=== PATIENT | female | born 1980 | race Caucasian/White ===

== ENCOUNTER 2018-02-22 07:50 | Day surgery (SDC) | payer BC ==
--- NOTE | 2018-02-14 15:03 | HP ---
AMENDED REPORT NOW INCLUDES DESIGNATED COSIGNER CC: Jesusita Zayas MD * PREOPERATIVE HISTORY AND PHYSICAL: DATE OF ADMISSION/SURGERY: 02/22/18 This patient is scheduled for same-day surgery admission by Dr. Maier on , 02/22/18 DATE OF PREOPERATIVE HISTORY AND PHYSICAL EXAMINATION: 02/14/18. ATTENDING SURGEON: Adryan Maier MD * (dictated by Jesusita Razo NP) CHIEF COMPLAINT: Reflux. HISTORY OF PRESENT ILLNESS: The patient is a 37-year-old female recently evaluated by Dr. Maier for longstanding issues with heartburn. She has been followed in the past by Dr. Barnard. He has tried various heartburn medications without relief. She reports currently she is having difficulty sleeping at night; currently, she is taking Prilosec 40 mg daily and then doubles up on Tums to try to control it and is still very uncomfortable. She describes the heartburn pain going up to center of her chest to the back of her throat. Upper GI series revealed a moderate hiatal hernia and upper endoscopy revealed Luis ulcers and a hiatal hernia. Dr. Maier has discussed the findings with her and has recommended a laparoscopic Eufemia fundoplication as a same day surgery procedure. He discussed the nature of the surgical procedure, the general anesthesia, the expected results of the surgery, the relevant risks and benefits and today I reviewed the typical progression of the postoperative diet and expected postoperative care and recovery. The patient has had a chance to ask questions and stated that she understands the information and is satisfied with the answers given to her questions. She will sign surgical consent on the day of surgery. PAST MEDICAL HISTORY: Morbid obesity, gastroesophageal reflux disease, migraine headaches, obstructive sleep apnea, fatigue. PAST SURGICAL HISTORY: Laparoscopic appendectomy in 2014; D and C. OB HISTORY: 6, para 4, miscarriage 2. Last menstrual period started February 01, 2018. She is up-to-date with mammogram and pelvic exam within the past year. MEDICATIONS: 1. Bupropion HCL extended release 300 mg p.o. daily in the morning. 2. Levocetirizine 5 mg p.o. daily. 3. Prilosec 20 mg b.i.d. 4. Multivitamin 1 tablet daily. 5. Vitamin B12 when she remembers to take it. ALLERGIES: CLINDAMYCIN causes rash. PENICILLIN, she was advised to avoid PENICILLIN by her scale tank operator. LATEX causes skin peeling and KIWI causes mouth swelling. REVIEW OF SYSTEMS: Constitutional: No fevers, chills, excessive fatigue or weight loss. Endocrine: No diabetes or thyroid disease. Hematologic: No easy bruising or bleeding. Respiratory: No dyspnea on exertion. No chronic cough. Cardiovascular: No anginal chest pain or palpitations. Gastrointestinal : No nausea, vomiting, diarrhea, GI bleeding or constipation; see history of present illness for current gastrointestinal complaints. Genitourinary: No dysuria. Musculoskeletal: Back pain, which she relates to the heaviness of her breasts and is considering breast reduction surgery. Integumentary: No chronic rashes or skin changes. Neurologic: No current headache or blurred vision. She does have a history of migraine headaches. General: No previous anesthesia complications. No history of deep vein thrombosis or pulmonary embolism. No history of blood transfusions. SOCIAL HISTORY: She is and is a registered nurse, employed at [employer]. She is a nonsmoker. She denies the uses of alcohol or other substances. FAMILY HISTORY: No known anesthesia complications, bleeding tendencies or clotting disorders; many relatives are diabetics. PHYSICAL EXAMINATION GENERAL SURVEY: The patient is a 37-year-old obese female, well developed, in no acute distress. VITAL SIGNS: Height 61 inches, weight 200 pounds, body mass index 37.8. Blood pressure 140/92, pulse 72 and regular, respiratory rate 16, temperature 97.8 tympanic. HEENT: Benign. NECK: Supple. No cervical lymphadenopathy. LUNGS: Breath sounds bilaterally clear and equal. HEART: Regular rate and rhythm. No murmurs or rubs appreciated. ABDOMEN: Active bowel sounds, obese, soft, nondistended. Mildly tender in the epigastric region. No guarding. No obvious masses or organomegaly. No obvious ventral hernias. Well healed trocar scars. PELVIC: Exam done within the past year, not repeated. RECTAL: Exam done within the past year, not repeated. BACK: No CVA tenderness. EXTREMITIES: Warm without edema or skin ulceration. NEUROLOGIC: Alert and oriented x3. Steady gait. SKIN: Warm, dry, intact. IMPRESSION: Gastroesophageal reflux disease, hiatal hernia. PLAN: Same-day surgery admission to Dr. Maier's service for laparoscopic Eufemia fundoplication on , 02/22/18. YOON RAZO, PROJECT LEAD [id number]/[facility] #: [id number] [facility]awny
[~2018-02-22 07:50] MED LIST: Buffered Lidocaine 0.9% SYRIN* 5 ML/SYR SYRINGE INTRADERM ONE; Dexamethasone IV* 4 MG/ML 1 ML (4 MG) IV SLOW PU ONE; Famotidine IV* 10 MG/ML 2 ML (20 mg) IV ONE
[2018-02-22] MEDS ORDERED: Morphine VIAL* 4 MG/ML VIAL (1 ml vial) IV ONE (07:53)
[2018-02-22] MEDS ORDERED: Dexamethasone IV* 4 MG/ML 1 ML (4 MG) ONE ×2 (07:59→10:22)
[2018-02-22] MEDS ORDERED: Levofloxacin 750 MG IVPREMIX(* 750 MG/150 ML BAG ONE (07:59)
[2018-02-22] MEDS ORDERED: Famotidine IV* 10 MG/ML 2 ML (20 mg) ONE (07:59)
[2018-02-22] MEDS ORDERED: fentaNYL* 50 MCG/ML 5 ML VIAL (250 MCG VIAL) ONE (08:32)
[2018-02-22] MEDS ORDERED: Midazolam* 1 MG/ML 5 ML VIAL (5 MG) ONE (08:32)
[2018-02-22] MEDS ORDERED: Rocuronium* 10 MG/ML VIAL ONE (08:32)
[2018-02-22] MEDS ORDERED: Succinylcholine* 20 MG/ML 10 ML VIAL ONE (08:32)
[2018-02-22] MEDS ORDERED: Lidocaine 2% PF * 5 ML VIAL ONE (08:32)
[2018-02-22] MEDS ORDERED: Ondansetron INJ* 2 MG/ML VIAL ONE (08:43)
[2018-02-22] MEDS ORDERED: Bupivacaine 0.25% W/EPI* 10 ML SDV ONE (09:16)
[2018-02-22] MEDS ORDERED: Phenylephrine INJ* 10 MG/ML 1 ML VIAL (10 MG) ONE (09:47)
[2018-02-22] MEDS ORDERED: Propofol* 10 MG/ML 20 ML BTL IV PUSH ONE (10:24)
[2018-02-22] MEDS ORDERED: Morphine VIAL* 4 MG/ML VIAL (1 ml vial) IV PRN (10:28)
[2018-02-22] MEDS ORDERED: Ketorolac INJ* 30 MG/ML 1 ML VIAL IV PRN (10:28)
[2018-02-22] MEDS ORDERED: PROCHLORPERAZINE INJ 5 MG/ML 2 ML VIAL IV PRN (10:28)
[2018-02-22] MEDS ORDERED: Acetaminophen IV 1GM/100ML * 1,000 MG/100 ML VIAL IVPB ONE (10:28)
[2018-02-22] MEDS ORDERED: DiMENhydriNATE IV* 50 MG/ML VIAL IV PUSH PRN (10:28)
[2018-02-22] MEDS ORDERED: Naloxone* 0.4 MG/ML 1 ML VIAL IV PRN (10:28)
[2018-02-22] MEDS ORDERED: Sugammadex * 200 MG/2 ML VIAL IV PUSH ONE (11:06)
[2018-02-22] MEDS ORDERED: VASOPRESSIN 20 UNITS/ML 1 ML VIAL ONE (11:08)
[2018-02-22] MEDS ORDERED: EPHEDrine (Pressors)* 50 MG/ML VIAL ONE (11:09)
[2018-02-22] MEDS ORDERED: Acetaminophen IV 1GM/100ML * 100 ML ONE (11:31)
[2018-02-22] MEDS ORDERED: Ketorolac INJ* 30 MG/ML 1 ML VIAL ONE (11:31)
[2018-02-22] MEDS ORDERED: fentaNYL* 50 MCG/ML 2 ML VIAL (100 MCG VIAL) ONE (11:31)
[2018-02-22] MEDS: fentaNYL* 50 MCG/ML 2 ML VIAL (100 MCG VIAL) IV PRN ×3 (11:55→13:53)
[2018-02-22 14:14] VITALS: BP 155/90
--- NOTE | 2018-02-23 09:43 | OP ---
CC: Dr. Zayas, Dr. Barnard * DATE OF OPERATION: 02/22/18 - [facility] DATE OF : 78 SURGEON: Dr. Maier OPERATING ROOM COORDINATOR: DIANA Harper ANESTHESIOLOGIST: Dr. Villafana. ANESTHESIA: General anesthetic, local infiltration. PRE-OP DIAGNOSIS: Gastroesophageal reflux disease. POST-OP DIAGNOSIS: Gastroesophageal reflux disease. OPERATIVE PROCEDURE: Laparoscopic Eufemia fundoplication. DESCRIPTION OF PROCEDURE: The patient was supine on the operating table after adequate general anesthetic, compression stockings, Laquita Hugger warmer, and intravenous antibiotics. The abdomen was prepped with antiseptic and draped in a sterile fashion. She was on the split leg table and appropriately padded and positioned and secured to the table. The local anesthetic was administered as a 5 mm right upper quadrant Visiport cannula was placed. Insufflation was carried out with carbon dioxide and additional cannula of 5 mm supraumbilical and subxiphoid and left anterior axillary line as well as 12 mm left mid costal. The liver was tented up and retracted in the usual fashion. The gastrohepatic omentum was entered over the caudate lobe and section carried up to the crura and the mediastinum was entered in this location and then the esophagus was dissected free. Retroesophageal window was created and a Hleadio was used for retraction. The GE junction was brought well down into the abdominal cavity. The crura was closed retroesophageally using 0 Ethibond. This was done around a 54-Gabonese bougie and was not too tight. The wrap was created in the usual fashion. The attachments over towards the spleen were taken down with a LigaSure and then the wrap was nice and floppy. 2 sutures were utilized and the wrap was also tacked to the esophageal wall anteriorly to prevent slippage. Everything was in good condition. There was good hemostasis. The cannulae were removed. Pneumoperitoneum allowed to escape and skin was closed with 5-0 Vicryl followed by Steri-Strips. She tolerated the procedure well, was awakened, extubated, and brought to recovery in good condition. There were no complications. No drains. No pathologic specimen. Sponge and instrument counts correct. Estimated blood loss is less than 30 mL. [id number]/[facility] #: [id number] [facility]
== END 2018-02-22 14:55 | disposition home or self-care (01) ==
LOC: OR 07:50
PROVIDERS: ATTEND Surgery
DX: K21.9 Gastro-esophageal reflux disease without esophagitis (principal); K44.9 Diaphragmatic hernia without obstruction or gangrene; E66.01 Morbid (severe) obesity due to excess calories; Z68.37 Body mass index [BMI] 37.0-37.9, adult; G47.33 Obstructive sleep apnea (adult) (pediatric)
CPT/HCPCS: 81025; J0330; J1100; J1885; J2250; J2270; J2405; J2704; J3010

== ENCOUNTER 2018-04-14 23:29 | Emergency (ER) | payer BC ==
[2018-04-15 00:08] LABS: ABS Basophils 0.1 10^3/ul (0-0.2); ABS Lymphocytes 2.4 10^3/ul (1.0-4.8); ABS Monocytes 0.5 10^3/ul (0-0.8); ABS Neutrophils 4.2 10^3/ul (1.5-7.7); ABS Nucleated RBC 0 10^3/ul; Eosinophil % 12.4 %; Hematocrit 38 % (35-47); Hemoglobin 12.9 g/dl (12.0-16.0); Lymphocyte % 29.1 %; Mean Corpuscular HGB Conc 34 g/dl (31-36); Mean Corpuscular Hemoglobin 30 pg (27-31); Mean Corpuscular Volume 89 fL (80-97); Nucleated Red Blood Cells % 0; Platelet Count 337 10^3/ul (150-450); Red Blood Count 4.26 10^6/ul (4.00-5.40); Red Cell Distribution Width 14 % (10.5-15); White Blood Count 8.1 10^3/ul (3.5-10.8)
--- NOTE | 2018-04-15 00:18 | ED ---
- HPI Summary HPI Summary: 37 year old female LMP nov presents with vaginal bleeding and LLQ pain today. has not had an ultrasound yet but had confirmed at primary. states has been minimal bleeding. She denies any disease. has follow up with ob in a couple weeks as has history of miscarriages with last one requiring surgery has had a missed in dec. she denies any nausea or vomiting. No urinary symptoms. No fevers. no abnormal vaginal discharge. blood type O positive - History of Current Complaint Chief Complaint: EDOBProblems Stated Complaint: 3 MONTHS PREG/CRAMPING AND BLEEDING Time Seen by Provider: 04/14/18 23:51 Pain Intensity: 4 - Assessment Hx Now: Yes - 4 weeks Hx Hysterectomy: No - Allergies/Home Medications Allergies/Adverse Reactions: Allergies Allergy/AdvReac Type Severity Reaction Status Date / Time clindamycin Allergy Severe Rash Verified 04/14/18 23:40 latex Allergy Severe Rash Verified 04/14/18 23:40 doxycycline Allergy Mild Rash Verified 04/14/18 23:40 Penicillins Allergy Unknown Verified 04/14/18 23:40 Reaction Details KIWI Allergy Intermediate SOB, RASH Uncoded 04/14/18 23:40 PMH/Surg Hx/FS Hx/Imm Hx Endocrine/Hematology History: Denies: Hx Diabetes Cardiovascular History: Denies: Hx Congestive Heart Failure, Hx Hypertension, Other Cardiovascular Problems/Disorders Respiratory History: Reports: Hx Asthma - no meds currrently, but has Qvar, Hx Sleep Apnea Denies: Other Respiratory Problems/Disorders GI History: Reports: Hx Gastroesophageal Reflux Disease - On medication, Hx Hiatal Hernia Denies: Other GI Disorders History: Reports: Hx Kidney Infection - Hx OF, MANY YEARS AGO Denies: Hx Renal Disease, Other Problems/Disorders Musculoskeletal History: Reports: Other Musculoskeletal History - has chronic back pain, states due to breasts being large Sensory History: Reports: Hx Contacts or Glasses - GLASSES or contacts- instructed to wear glasses day of surgery Denies: Hx Hearing Aid Opthamlomology History: Reports: Hx Contacts or Glasses - GLASSES or contacts- instructed to wear glasses day of surgery Neurological History: Reports: Hx Headaches, Hx Migraine - not recent Denies: Other Neuro Impairments/Disorders Psychiatric History: Reports: Hx Anxiety, Hx Depression - on bupropion - Surgical History Surgery Procedure, Year, and Place: D&C 2006, 2014. 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 , Hx Shingles Denies: Hx Clostridium Difficile, Hx Hepatitis, Hx Human Immunodeficiency Virus (HIV), Hx Tuberculosis, Hx Known/Suspected VRE, Hx Known/Suspected VRSA, History Other Infectious Disease, Traveled Outside the [place] in Last 30 Days - Family History Known Family History: Positive: None, Diabetes - Social History Alcohol Use: None Hx Substance Use: No Substance Use Type: Reports: None Hx Tobacco Use: No Smoking Status (MU): Never Smoked Tobacco Have You Smoked in the Last Year: No Review of Systems Negative: Fever Negative: Chest Pain Negative: Shortness Of Breath Positive: Abdominal Pain, Other - vaginal bleeding All Other Systems Reviewed And Are Negative: Yes Physical Exam - Physical Exam Triage Information Reviewed: Yes Vital Signs Reviewed: Yes Appearance: Positive: Well-Appearing Skin: Positive: Warm, Dry Head/Face: Positive: Normal Head/Face Inspection Eyes: Positive: Normal, Conjunctiva Clear ENT: Positive: Pharynx normal Respiratory/Lung Sounds: Positive: Clear to Auscultation, Breath Sounds Present Cardiovascular: Positive: Normal, RRR Abdomen Description: Positive: Soft, Other: - tenderness LLQ Bowel Sounds: Positive: Present Pelvic Exam: External Exam Normal, Speculum Exam Normal, Bimanual Exam Normal, Tender Adnexa - left, Tender Uterus Musculoskeletal: Positive: Normal Neurological: Positive: Normal Psychiatric: Positive: Normal Diagnostics - Vital Signs Vital Signs Temp Pulse Resp BP Pulse Ox 04/15/18 00:00 94 99 04/14/18 23:51 94 98 04/14/18 23:50 95 150/87 98 04/14/18 23:36 98.6 F 90 16 157/97 98 - Laboratory Lab Results: Lab Results 04/14/18 Range/Units 23:55 WBC 8.1 (3.5-10.8) 10^3/ul RBC 4.26 (4.00-5.40) 10^6/ul Hgb 12.9 (12.0-16.0) g/dl Hct 38 (35-47) % MCV 89 (80-97) fL MCH 30 (27-31) pg MCHC 34 (31-36) g/dl RDW 14 (10.5-15) % Plt Count 337 (150-450) 10^3/ul MPV 8.0 (7.4-10.4) fL Neut % (Auto) 51.4 % Lymph % (Auto) 29.1 % [place] % (Auto) 6.0 % Eos % (Auto) 12.4 % Baso % (Auto) 1.1 % Absolute Neuts (auto) 4.2 (1.5-7.7) 10^3/ul Absolute Lymphs (auto) 2.4 (1.0-4.8) 10^3/ul Absolute Monos (auto) 0.5 (0-0.8) 10^3/ul Absolute Eos (auto) 1.0 H (0-0.6) 10^3/ul Absolute Basos (auto) 0.1 (0-0.2) 10^3/ul Absolute Nucleated RBC 0 10^3/ul Nucleated RBC % 0 Result Diagrams: 04/14/18 23:55 04/14/18 23:55 Lab Statement: Any lab studies that have been ordered have been reviewed, and results considered in the medical decision making process. - Ultrasound No standard instances Ultrasound Interpretation Completed By: Radiologist Summary of Ultrasound Findings: IMPRESSION: Intrauterine gestation with crown- rump length of 3 mm with no observed cardiac. activity. Findings are viewed with suspicion for failed but not. entirely diagnostic at this point. Followup in 1 week may be of benefit. Course/Dx - Course Course Of Treatment: 37 year old female LMP nov presents with vaginal bleeding and LLQ pain today. has not had an ultrasound yet but had confirmed at primary. states has been minimal bleeding. She denies any disease. has follow up with ob in a couple weeks as has history of miscarriages with last one requiring surgery has had a missed in dec. she denies any nausea or vomiting. No urinary symptoms. No fevers. no abnormal vaginal discharge. on exam tenderness LLQ. on pelvic no blood noted but tenderness in left adnexa and uterus. hcg 12,000. wbc normal. urine likely a contaminant. with tenderness left adnexa and no confirmed u/s will get u/s. u/ s shows iup with on heart rate. explained results to patient that could be miscarriage due to demise or may be too early. told to follow up with ob. patient understand and agrees with plan. - Differential Diagnosis/HQI/PQRI: Incomplete , Threatened , Ectopic - Diagnoses Provider Diagnoses: Threatened Discharge - Sign-Out/Discharge Documenting (check all that apply): Patient Departure - Discharge Plan Condition: Good Disposition: HOME Patient Education Materials: Threatened Miscarriage (ED) Referrals: Vito Richards MD [Primary Care Provider] - Jerry Bejarano MD [Medical Doctor] - Additional Instructions: follow up with ob Take tyenlol as needed for pain Return to ED if develop any fever or any new or worsening symptoms - Billing Disposition and Condition Condition: GOOD Disposition: Home
[2018-04-15 00:24] LABS: Albumin/Globulin Ratio 1.6 (1-3); Calcium 9.2 mg/dL (8.6-10.3); Globulin 2.5 g/dL (2-4); Potassium 3.7 mmol/L (3.5-5.0); Total Bilirubin 0.2 mg/dL (0.2-1.0); Total Protein 6.5 g/dL (6.4-8.9)
[2018-04-15 02:13] LABS: Urine Appearance Clear; Urine Bacteria Absent (Absent); Urine Bilirubin Negative (Negative); Urine Blood Negative (Negative); Urine Color Yellow; Urine Glucose Negative (Negative); Urine Ketones Negative (Negative); Urine Nitrite Negative (Negative); Urine Protein Negative (Negative); Urine Red Blood Cell Absent (Absent); Urine Specific Gravity 1.028 (1.010-1.030); Urine Urobilinogen Negative (Negative); Urine White Blood Cell Trace(0-5/hpf) (Absent)
[2018-04-15 02:59] VITALS: BP 123/98
--- NOTE | 2018-04-17 06:32 | ED ---
Progress - Progress Note Progress Note: Patient was seen for abdominal pain and vaginal bleeding during . Urine reveals 25-50,000 strep group B. Note indicates that pt denies urinary sx and has squamos epithelial cells on U/A. Her was not determined to be viable as a HR was not identified and pt was advised to have follow-up with her NNP, Dr. Bejarano. Due to low bacteria count, lack of urinary sx and possible contamination as observed on U/A, will not treat at this time however will forward results to OB-LINER INSTALLER. sports clerk, aware. Course/Dx - Course Course Of Treatment: 37 year old female LMP nov presents with vaginal bleeding and LLQ pain today. has not had an ultrasound yet but [facility]. states has been minimal bleeding. She denies any disease. has follow up with ob in a couple weeks as has history of miscarriages with last one requiring surgery has had a missed in dec. she denies any nausea or vomiting. No urinary symptoms. No fevers. no abnormal vaginal discharge. on exam tenderness LLQ. on pelvic no blood noted but tenderness in left adnexa and uterus. hcg 12,000. wbc normal. urine likely a contaminant. with tenderness left adnexa and no confirmed u/s will get u/s. u/ s shows iup with on heart rate. explained results to patient that could be miscarriage due to demise or may be too early. told to follow up with ob. patient understand and agrees with plan. - Diagnoses Provider Diagnoses: Threatened Discharge - Sign-Out/Discharge Documenting (check all that apply): Post-Discharge Follow Up - Discharge Plan Condition: Good Disposition: HOME Patient Education Materials: Threatened Miscarriage (ED) Referrals: Vito Richards MD [Primary Care Provider] - Jerry Bejarano MD [Medical Doctor] - Additional Instructions: follow up with ob Take tyenlol as needed for pain Return to ED if develop any fever or any new or worsening symptoms - Billing Disposition and Condition Condition: GOOD Disposition: Home
== END 2018-04-15 03:15 | disposition home or self-care (01) ==
LOC: ED 23:29
DX: O20.0 Threatened abortion (principal); R10.32 Left lower quadrant pain; O46.93 Antepartum hemorrhage, unspecified, third trimester; Z88.0 Allergy status to penicillin
CPT/HCPCS: 36415; 76817; 80053; 81003; 81015; 84702; 85025; 86900; 86901; 87077; 87086; 87480; 87491; 87510; 87591; 87661; 99282

== ENCOUNTER 2018-04-20 22:38 | Emergency (ER) | payer BC ==
[2018-04-20] MEDS ORDERED: NS 0.9% 1000 ML* 1,000 ML IV ONE (22:48)
[2018-04-20 23:04] LABS: ABS Basophils 0.1 10^3/ul (0-0.2); ABS Eosinophils 0.6 10^3/ul (0-0.6); ABS Lymphocytes 2.4 10^3/ul (1.0-4.8); ABS Monocytes 0.5 10^3/ul (0-0.8); ABS Neutrophils 3.9 10^3/ul (1.5-7.7); ABS Nucleated RBC 0 10^3/ul; Eosinophil % 7.6 %; Hematocrit 40 % (35-47); Hemoglobin 13.3 g/dl (12.0-16.0); Lymphocyte % 32.4 %; Mean Corpuscular HGB Conc 34 g/dl (31-36); Mean Corpuscular Hemoglobin 30 pg (27-31); Mean Corpuscular Volume 90 fL (80-97); Mean Platelet Volume 7.9 fL (7.4-10.4); Nucleated Red Blood Cells % 0.1; Platelet Count 361 10^3/ul (150-450); Red Cell Distribution Width 14 % (10.5-15); White Blood Count 7.5 10^3/ul (3.5-10.8)
--- NOTE | 2018-04-20 23:07 | ED ---
GI/ HPI - HPI Summary HPI Summary: A 37 y/o female who is presents to [facility] with a chief complaint of vaginal bleeding since 17:00 04/20/18. She rates her pain as 7/10. Her LNMP was 01/31/18. US done 04/15 during and ED visit showed no heart activity, and she was told she would likely pass products of conception. If not, she has an appt for this coming Monday to discuss a D&C. The patient reports that this is her 8th and that she has 4 living children. P: 4 A:3. She also c/ o abd pain which she describes as cramping. - History of Current Complaint Chief Complaint: EDAbdPain Time Seen by Provider: 04/20/18 22:50 Stated Complaint: HEAVY VAGINAL BLEEDING Hx Obtained From: Patient Hx Last Menstrual Period: 01/31/18 Onset/Duration: Started Hours Ago, Still Present Timing: Constant Severity: Severe Current Severity: Severe Pain Intensity: 7 - out of 10 Location of Pain: Diffuse Pain Characteristics: Cramping Associated Signs and Symptoms: Positive: Abdominal Pain. Negative: Fever Aggravating Factor(s): Nothing Alleviating Factor(s): Nothing - Allergy/Home Medications Allergies/Adverse Reactions: Allergies Allergy/AdvReac Type Severity Reaction Status Date / Time clindamycin Allergy Severe Rash Verified 04/14/18 23:40 latex Allergy Severe Rash Verified 04/14/18 23:40 doxycycline Allergy Mild Rash Verified 04/14/18 23:40 Penicillins Allergy Unknown Verified 04/14/18 23:40 Reaction Details KIWI Allergy Intermediate SOB, RASH Uncoded 04/14/18 23:40 Home Medications: Home Medications NK [No Home Medications Reported] 04/20/18 [History Confirmed 04/20/18] PMH/Surg Hx/FS Hx/Imm Hx Endocrine/Hematology History: Denies: Hx Diabetes Cardiovascular History: Denies: Hx Congestive Heart Failure, Hx Hypertension, Other Cardiovascular Problems/Disorders Respiratory History: Reports: Hx Asthma - no meds currrently, but has Qvar, Hx Sleep Apnea Denies: Other Respiratory Problems/Disorders GI History: Reports: Hx Gastroesophageal Reflux Disease - On medication, Hx Hiatal Hernia Denies: Other GI Disorders History: Reports: Hx Kidney Infection - Hx OF, MANY YEARS AGO Denies: Hx Renal Disease, Other Problems/Disorders Musculoskeletal History: Reports: Other Musculoskeletal History - has chronic back pain, states due to breasts being large Sensory History: Reports: Hx Contacts or Glasses - GLASSES or contacts- instructed to wear glasses day of surgery Denies: Hx Hearing Aid Opthamlomology History: Reports: Hx Contacts or Glasses - GLASSES or contacts- instructed to wear glasses day of surgery Neurological History: Reports: Hx Headaches, Hx Migraine - not recent Denies: Other Neuro Impairments/Disorders Psychiatric History: Reports: Hx Anxiety, Hx Depression - on bupropion - Surgical History Surgery Procedure, Year, and Place: D&C 2006, 2014. 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 , Hx Shingles Denies: Hx Clostridium Difficile, Hx Hepatitis, Hx Human Immunodeficiency Virus (HIV), Hx Tuberculosis, Hx Known/Suspected VRE, Hx Known/Suspected VRSA, History Other Infectious Disease, Traveled Outside the in Last 30 Days - Family History Known Family History: Positive: Diabetes - Social History Alcohol Use: None Hx Substance Use: No Substance Use Type: Reports: None Hx Tobacco Use: No Smoking Status (MU): Never Smoked Tobacco Have You Smoked in the Last Year: No Review of Systems Negative: Fever Positive: Abdominal Pain Positive: other - positive: vaginal bleeding All Other Systems Reviewed And Are Negative: Yes Physical Exam - Summary Physical Exam Summary: Appearance: Well-appearing, Well-nourished, lying in bed comfortably but anxious Skin: Warm, dry, no obvious rash Eyes: sclera anicteric, no conjunctival pallor ENT: mucous membranes moist, pharynx appears normal Neck: Supple, nontender Respiratory: Clear to auscultation, no signs of respiratory distress Cardiovascular: Normal S1, S2. No murmurs. Normal distal pulses in tibial and radial bilaterally. Abdomen: Soft, nontender, normal active bowel sounds present Musculoskeletal: Normal, Strength/ROM Intact Neurological: A&Ox3, awake and alert, mentation is normal, speech is fluent and appropriate Psychiatric: affect is normal, does not appear anxious or depressed exam: vaginal bleeding is present. I was not able to discern if the cervix is closed or not either by speculum or bimanual exam. Triage Information Reviewed: Yes Vital Signs On Initial Exam: Initial Vitals Temp Pulse Resp BP Pulse Ox 97.5 F 103 20 137/97 98 04/20/18 22:39 04/20/18 22:39 04/20/18 22:39 04/20/18 22:39 04/20/18 22:39 Vital Signs Reviewed: Yes Diagnostics - Vital Signs Vital Signs Temp Pulse Resp BP Pulse Ox 04/20/18 22:39 97.5 F 103 20 137/97 98 - Laboratory Result Diagrams: 04/21/18 04:12 04/20/18 22:57 Lab Statement: Any lab studies that have been ordered have been reviewed, and results considered in the medical decision making process. Re-Evaluation - Re-Evaluation First Eval Re-Evaluation Time: 00:07 Change: Improved Comment: The patient is feeling better after a dose of morphine. According to the RN, her bleeding appears to be slowing somewhat. We'll continue to monitor. GIGU Course/Dx - Course Course Of Treatment: This is a 37-year-old multiparous woman with inevitable , now having increasing bleeding and cramps. She is hemolytically stable her hemoglobin is normal. The plan is to observe for now. My hope is that her bleeding will slow on its own. On bedside screening ultrasound the uterus appears empty. In the ED course the patient was given sodium chloride IV and Morphine IV. Lab results obtained and WNL. After discussing the case with BENITO Cohen, she recommends observation and thinks bleeding will stop on its own but if it does not she will come into the ED for a D&C. Bleeding has continously been slowing, now only bleeding "a little bit". The patient will be discharged and is agreeable with this plan. - Diagnoses Provider Diagnoses: Inevitable - Physician Notifications Discussed Care Of Patient With: Calista Garcia Time Discussed With Above Provider: 23:30 Instructed by Provider To: Other - Recommends observation and thinks bleeding will stop on its own but if it does not she will come into the ED for a D&C. Discharge - Sign-Out/Discharge Documenting (check all that apply): Patient Departure - DC - Discharge Plan Condition: Good Disposition: HOME Patient Education Materials: Miscarriage (ED) Forms: *Work Release Referrals: Jerry Bejarano MD [Medical Doctor] - Additional Instructions: Please contact Dr. Bejarano's office so they can get you in for followup. Usually they will want to check an ultrasound study after a miscarriage to make sure the uterus is healing ok. - Billing Disposition and Condition Condition: GOOD Disposition: Home - Attestation Statements Document Initiated by Shannan: Yes Documenting Scribe: Maycol Aldana Provider For Whom Shannan is Documenting (Include Credential): Papito Pritchard MD Scribe Attestation: I, Maycol Aldana, scribed for Papito Pritchard MD on 04/21/18 at 0542. Scribe Documentation Reviewed: Yes Provider Attestation: The documentation as recorded by the Maycol pyle accurately reflects the service I personally performed and the decisions made by me, Papito Pritchard MD Status of Scribe Document: Viewed
[2018-04-20 23:23] LABS: Albumin 4.4 g/dL (3.2-5.2); Albumin/Globulin Ratio 1.6 (1-3); BUN/Creatinine Ratio 15.8 (8-20); Calcium 9.7 mg/dL (8.6-10.3); EGFR Non-African American 85.2 (>60); Globulin 2.7 g/dL (2-4); Potassium 3.6 mmol/L (3.5-5.0); Total Bilirubin 0.3 mg/dL (0.2-1.0); Total Protein 7.1 g/dL (6.4-8.9)
[2018-04-20] MEDS ORDERED: Morphine VIAL* 4 MG/ML VIAL (1 ml vial) IV ONE (23:36)
[2018-04-21 04:21] LABS: Hematocrit 34 % (35-47); Hemoglobin 11.5 g/dl (12.0-16.0)
[2018-04-21] MEDS ORDERED: Acetaminophen TAB* 325 MG PO ONE (04:29)
[2018-04-21 05:11] VITALS: BP 112/79
== END 2018-04-21 05:11 | disposition home or self-care (01) ==
LOC: ED 22:38
DX: O03.9 Complete or unspecified spontaneous abortion without complication (principal); N93.9 Abnormal uterine and vaginal bleeding, unspecified; R10.9 Unspecified abdominal pain; Z88.0 Allergy status to penicillin
CPT/HCPCS: 36415; 80053; 84702; 85014; 85018; 85025; 86850; 86900; 86901; 96361; 96374; 99283; A9270-GY; J2270

== ENCOUNTER 2018-08-10 08:04 | Day surgery (SDC) | payer BC ==
[~2018-08-10 08:04] MED LIST changes: -Buffered Lidocaine 0.9% SYRIN* 5 ML/SYR SYRINGE INTRADERM ONE; +Buffered Lidocaine 1% SYRIN* 1 ML/SYRINGE INTRADERM ONE; +DOXYcycline CAP(*) 100 MG PO ONE; -Dexamethasone IV* 4 MG/ML 1 ML (4 MG) IV SLOW PU ONE; +Dexamethasone TAB* 4 MG ONE; +Dexamethasone TAB* 4 MG PO ONE; +Famotidine IV* 10 MG/ML 2 ML (20 mg) ONE; +Lactated Ringers 1000 ML Bag* 1,000 ML IV SCH; +Ondansetron ODT TAB* 4 MG ONE; +Ondansetron TAB* 4 MG PO ONE; +Scopolamine 1.5 mg* PATCH ONE; +Scopolamine 1.5 mg* PATCH TRANSDERM ONE
[2018-08-10] MEDS ORDERED: Morphine 4 MG/ML VIAL (1 ml) 4 MG/ML VIAL IV PRN (08:24)
[2018-08-10] MEDS ORDERED: oxyCODONE/Acetamin 5/325 MG* TAB PO PRN (08:24)
[2018-08-10] MEDS ORDERED: DiMENhydriNATE IV* 50 MG/ML VIAL IV PUSH PRN (08:24)
[2018-08-10] MEDS ORDERED: Naloxone* 0.4 MG/ML 1 ML VIAL IV PRN (08:24)
[2018-08-10] MEDS ORDERED: PROCHLORPERAZINE INJ 5 MG/ML 2 ML VIAL IV PRN (08:24)
[2018-08-10 08:49] LABS: ABS Basophils 0.1 10^3/ul (0-0.2); ABS Eosinophils 0.2 10^3/ul (0-0.6); ABS Lymphocytes 2.1 10^3/ul (1.0-4.8); ABS Monocytes 0.4 10^3/ul (0-0.8); ABS Neutrophils 3.9 10^3/ul (1.5-7.7); ABS Nucleated RBC 0 10^3/ul; Eosinophil % 3.2 %; Hematocrit 38 % (33-41); Hemoglobin 12.8 g/dL (12.0-16.0); Lymphocyte % 31.2 %; Mean Corpuscular HGB Conc 34 g/dL (31-36); Mean Corpuscular Hemoglobin 30 pg (27-31); Mean Corpuscular Volume 88 fL (80-97); Mean Platelet Volume 8.5 fL (7.4-10.4); Nucleated Red Blood Cells % 0.1; Platelet Count 315 10^3/uL (150-450); Red Blood Count 4.36 10^6 /uL (3.70-4.87); Red Cell Distribution Width 14 % (10.5-15); White Blood Count 6.6 10^3/uL (3.5-10.8)
[2018-08-10] MEDS ORDERED: Lidocaine 1% INJ* 10 MG/ML 30 ML SDV ONE (09:11)
[2018-08-10] MEDS ORDERED: fentaNYL* 50 MCG/ML 2 ML VIAL (100 MCG VIAL) ONE ×2 (09:16→10:26)
[2018-08-10] MEDS ORDERED: KETAMINE HCL* 50 MG/ML 10 ML VIAL ONE (09:16)
[2018-08-10] MEDS ORDERED: Midazolam* 1 MG/ML 5 ML VIAL (5 MG) ONE (09:16)
[2018-08-10] MEDS ORDERED: Propofol* 10 MG/ML 20 ML BTL ONE (09:46)
[2018-08-10] MEDS ORDERED: Ketorolac INJ* 30 MG/ML 1 ML VIAL ONE (09:46)
[2018-08-10] MEDS ORDERED: Lidocaine 2% PF * 5 ML VIAL ONE (09:46)
[2018-08-10] MEDS ORDERED: hydrALAZINE IV* 20 MG/ML VIAL ONE (09:46)
[2018-08-10] MEDS ORDERED: Metoprolol Tartrate IV* 1 MG/ML 5 ML VIAL ONE (09:46)
[2018-08-10] MEDS ORDERED: Silver Nitrate/Potassium Nitr* 1 EA STICK ONE (09:52)
[2018-08-10] MEDS: fentaNYL* 50 MCG/ML 2 ML VIAL (100 MCG VIAL) IV PRN ×2 (10:26→10:31)
--- NOTE | 2018-08-10 11:01 | OP ---
OPERATIVE REPORT: DATE OF OPERATION: 08/10/18 DATE OF : 78 SURGEON: Calista Garcia MD ANESTHESIA: Monitored anesthesia care and local surgical block. PRE-OP DIAGNOSIS: Missed at 6-week size. POST-OP DIAGNOSIS: Missed at 6-week size. OPERATIVE PROCEDURE: Suction, dilation and curettage. ESTIMATED BLOOD LOSS: Minimal. FLUIDS: Crystalloid. FINDINGS: Products of conception. COMPLICATIONS: None. COUNTS: All correct. DESCRIPTION OF PROCEDURE: After informed consent was signed, the patient was taken to the operating room where she was given monitored anesthesia care. She was prepped and draped in the dorsal lithoto my position in the [facility]. A time-out was performed. A speculum was then placed into h er vagina to expose the cervix and the anterior lip of the cervix was grasped with a single-tooth ten aculum. A cervical block was done with 1% lidocaine at 11, 2, and 6 o'clock around the cervix. The cervix was already dilated. It was easily dilated further until the size 8 curved suction cannula co uld be inserted. The device was turned on and the uterine contents were easily suctioned until the u terine size decreased and a gritty texture was felt on all quadrants of the uterus. The cannula was removed and very minimal bleeding was noted at that time. There was a small amount of bleeding from one of the injection sites for the cervical block and this was cauterized with silver nitrate with go od hemostasis. The speculum was removed from the vagina. The patient was placed back in the supine position, cleaned, and taken to the recovery room in stable condition. [id number]/[facility] #: [id number]
[2018-08-10] MEDS ORDERED: oxyCODONE/Acetamin 5/325 MG* TAB ONE (11:34)
[2018-08-10 12:53] VITALS: BP 122/81
[2018-08-13] MEDS ORDERED: Scopolamine PATCH Remove* 1 NOTE MISC PATCH OFF ONE (06:00)
== END 2018-08-10 12:55 | disposition home or self-care (01) ==
LOC: OR 08:04
PROVIDERS: ATTEND Obstetrics & Gynecology
DX: O02.1 Missed abortion (principal); F32.9 Major depressive disorder, single episode, unspecified; G47.33 Obstructive sleep apnea (adult) (pediatric); Z91.040 Latex allergy status; Z88.0 Allergy status to penicillin; Z91.018 Allergy to other foods; Z3A.01 Less than 8 weeks gestation of pregnancy
CPT/HCPCS: 36415; 85025; 86850; 86900; 86901; 88305; A9270-GY; J0360; J1885; J2250; J2704; J3010; J3490; J8540

== ENCOUNTER 2018-08-19 08:01 | Emergency (ER) | payer BC ==
[2018-08-19 08:15] VITALS: BP 155/100
[2018-08-19] MEDS ORDERED: Acetaminophen TAB* 325 MG PO ONE (08:41)
--- NOTE | 2018-08-19 08:48 | UC ---
Back Pain HPI - HPI Summary HPI Summary: patient has a d and c on 08/10/18. She reports today with increased severe abdominal pain and left flank pain. patient is able to urinate and have BMs. She states she is still passing clots and the pain is increasing. she is hypertensive upon arrival and in visible pain. it is very hard for her to sit up. - History of Current Complaint Chief Complaint: UCGI Stated Complaint: PAIN ON LEFT SIDE Time Seen by Provider: 08/19/18 08:27 Hx Obtained From: Patient Hx Last Menstrual Period: d&c a week ago ?: No Onset/Duration: Gradual Onset, Lasting Days Timing: Constant Severity Initially: Severe Severity Currently: Severe Pain Intensity: 6 Back Pain: Is Diffuse Character: Aching, Throbbing, Spasmodic Aggravating Factor(s): Movement Alleviating Factor(s): Position Associated Signs And Symptoms: Positive: Abdominal Pain, Flank Pain - Allergies/Home Medications Allergies/Adverse Reactions: Allergies Allergy/AdvReac Type Severity Reaction Status Date / Time clindamycin Allergy Severe Rash Verified 08/19/18 09:07 latex Allergy Severe Rash Verified 08/19/18 09:07 doxycycline Allergy Mild Rash Verified 08/19/18 09:07 Penicillins Allergy Unknown Unknown Verified 08/19/18 09:07 Reaction Details kiwi Allergy Rash Verified 08/19/18 09:16 Home Medications: Home Medications Ibuprofen TAB* [Motrin TAB* 800 MG] 800 mg PO Q6H PRN 08/19/18 [History Confirmed 08/19/18] Loratadine 10 mg PO DAILY 08/19/18 [History Confirmed 08/19/18] PMH/Surg Hx/FS Hx/Imm Hx Previously Healthy: Yes - Surgical History Surgical History: Yes Surgery Procedure, Year, and Place: D&C 2006, 2014, 08/10/18. Appendectomy 2014. hiatal hernia repair - Family History Known Family History: Positive: None, Diabetes - Social History Alcohol Use: None Substance Use Type: None Smoking Status (MU): Never Smoked Tobacco Have You Smoked in the Last Year: No Review of Systems All Other Systems Reviewed And Are Negative: Yes Constitutional: Positive: Negative Skin: Positive: Negative Eyes: Positive: Negative ENT: Positive: Negative Respiratory: Positive: Negative Cardiovascular: Positive: Negative Gastrointestinal: Positive: Abdominal Pain, Nausea Genitourinary: Positive: Negative, Vaginal/Penile Discharge - clots Motor: Positive: Negative Neurovascular: Positive: Negative Musculoskeletal: Positive: Myalgia Neurological: Positive: Negative Psychological: Positive: Negative Is Patient Immunocompromised?: No Physical Exam Triage Information Reviewed: Yes Appearance: Well-Nourished, Ill-Appearing, Pain Distress Vital Signs: Initial Vital Signs Temp 98.2 F 08/19/18 08:07 Pulse 85 08/19/18 08:07 Resp 16 08/19/18 08:07 BP 155/100 08/19/18 08:07 Pulse Ox 100 08/19/18 08:07 Vital Signs Reviewed: Yes Eye Exam: Normal ENT Exam: Normal Neck exam: Normal Respiratory Exam: Normal Abdomen Description: Positive: CVA Tenderness (L) - postivie, Other: - diffuse tenderness Bowel Sounds: Positive: Present Musculoskeletal Exam: Normal Neurological Exam: Normal Psychological Exam: Normal Skin Exam: Normal Back Pain Course/Dx - Course Course Of Treatment: hx obtained, exam performed ,meds reviewed, attempted to treat pain, patient only wanted tylneol as narcotics make her very tired and she feels she cannot express herself correctly. patient did take 800 of ibuprofen in the middle of the night. tylenol administered. set to ER for further evaluation - Differential Dx/Diagnosis Differential Diagnosis/HQI/PQRI: Strain, Sprain, Other - retained tissue in uterus kidney stone pyelonephritis Provider Diagnosis: Left flank pain, Abdominal pain Discharge - Sign-Out/Discharge Documenting (check all that apply): Patient Departure All imaging exams completed and their final reports reviewed: No Studies - Discharge Plan Condition: Stable Disposition: HOME Patient Education Materials: Flank Pain (ED) Referrals: Vito Richards MD [Primary Care Provider] - Additional Instructions: 1. please report to ER for further evaluation of abdominal pain - Billing Disposition and Condition Condition: STABLE Disposition: Home - Attestation Statements Provider Attestation: I was available for consult. This patient was seen by the [facility]. The patient was not presented to , seen by or examined by m[place] -Chemo Allen MD
== END 2018-08-19 08:50 | disposition home or self-care (01) ==
LOC: UCEAST 08:01
DX: R10.84 Generalized abdominal pain (principal); M54.9 Dorsalgia, unspecified; Z87.59 Personal history of other complications of pregnancy, childbirth and the puerperium; Z90.89 Acquired absence of other organs; Z88.1 Allergy status to other antibiotic agents; Z91.040 Latex allergy status; Z88.0 Allergy status to penicillin; Z91.018 Allergy to other foods
CPT/HCPCS: 99212; A9270-GY; G0463

== ENCOUNTER 2018-08-19 09:05 | Emergency (ER) | payer BC ==
--- OUTSIDE RECORDS SUMMARY | 2018-08-19 09:17 | XMS REPORT | Continuity of Care Document ---
:1980 External Reference #:[id number] Author Name Fanta Jo Care Team Providers Name Role Phone Jesusita Zayas MD Primary Care Physician Unavailable Payers Date Identification Numbers Payment Provider Subscriber Policy Number: [id number] [employer]/[facility] Breana Hunter PayID: [id number] [address] [address] [place] [address] Advance Directives Description No Information Available Problems Description No Active Problems Family History Date Family Member(s) Observation Comments Father Unknown Mother Breast Cancer Number of Children 4 First Son A&W Second Son A&W Third Son A&W First Daughter A&W Number of Siblings Siblings: 1 First Brother A&W Paternal Grandfather Unknown Paternal Grandmother Unknown Maternal Grandfather due to Aneurysm () Maternal Grandmother due to Kidney Disease () Maternal Uncles Down's Syndrome Social History Type Date Description Comments Sex Unknown Education Highest level of education completed is a bachelor's degree Marital Status Patient is Living Situation and kids Diet Diet is healthy and well balanced Occupation RN Employment Currently working Environmental Hazards Not exposed to any environmental hazards--low lead risk Cigarette Use Never smoked cigarettes Alcohol Denies alcohol use Tobacco Use Start: Unknown Patient has never smoked Drug Use Denies drug use Smoking Status Reviewed: 08/07/18 Patient has never smoked Daily Caffeine Drinks on average 2 cups of coffee a day Exercise Type/Frequency Exercises regularly Current Seat Belt/Car Seat Always uses a seat belt Currently Active The patient is currently sexually active Contraceptive Methods Does not currently use any method of control STD's No STD history Allergies, Adverse Reactions, Alerts Active Allergies Reaction Severity Comments Date Latex 06/11/2014 Clindamycin 08/13/2014 Penicillin 09/04/2017 Kiwi 09/04/2017 Inactive Allergies NKDA 03/31/2009 Latex sensitive rash 03/31/2009 NKDA 06/11/2014 Medications Active Medications SIG Qnty Indications Ordering Provider Date Loestrin 05/13 (21) take 1 tablet by 105tabs Calista Garcia, 05/07/2018 mouth daily, 1-20mg-mcg Tablets start with your next period Multi Vitamin Unknown Tablets History Medications Nexium Take 1 tablet daily 30caps Helena Bj, 10/20/2009 - 20mg Capsules for heartburn. Take CN 03/03/2010 DR tablet one hour before food. Protonix 1 tablet PO once 30units Isaura Carroll, [facility] 10/05/2009 - 40mg daily, swallow 12/04/2009 whole. PNV-Dha 1 po qd 100caps Miranda Muñoz INSTRUCTOR DECORATING, 07/07/2009 - CNM 03/03/2010 27-0.6-0.4-300mg Capsules Famotidine one tablet PO bid 60tabs Mireya Jump, 03/31/2009 - 10mg as needed for ANP-C 12/04/2009 Tablets heartburn Mircette 1 PO qd 28tabs Mireya Jump, 05/27/2008 - 28Day ANP-C 03/30/2009 Tablets Monistat 3 1 Applicator Per Joy Hawthorne, [facility] 04/04/2007 - 4% Cream Vagina Has X3 03/30/2009 Terazol 7 apply per 45gm Lakisha York, 03/20/2007 - 0.4% Cream directions hs x 7 [facility] 04/04/2007 days Bactrim Unknown - 08/13/2014 Celexa Unknown - 08/13/2014 Tylenol Unknown - 09/04/2017 Motrin Ib Unknown - 200mg 04/24/2018 Tablets Wellbutrin XL take one by mouth Unknown - 300mg every morning 04/24/2018 Tablets ER 24HR Medications Administered in Office Medication SIG Qnty Indications Ordering Provider Date PT SCRN Tbco Id as Non User Donn Vega MD 01/05/2018 Injection PT SCRN Tbco Id as Non User Jerry Bejarano M.D. 09/04/2017 Injection Immunizations Description No Information Available Vital Signs Date Vital Result Comment 08/07/2018 8:29am BP Systolic 120 mmHg BP Diastolic 82 mmHg Height 61 inches 5'1" Weight 194.00 lb BMI (Body Mass Index) 36.7 kg/m2 Last Menstrual Period [id number] 9 Parity 4 04/25/2018 8:46am BP Systolic 126 mmHg BP Diastolic 80 mmHg Height 61 inches 5'1" Weight 194.00 lb BMI (Body Mass Index) 36.7 kg/m2 Last Menstrual Period [id number] 8 Parity 4 04/21/2018 12:00am BP Systolic 112 mmHg BP Diastolic 79 mmHg Body Temperature 98.5 F Heart Rate 82 /min Respiratory Rate 17 /min 04/20/2018 12:00am Height 62 inches Weight 195.00 lb BMI (Body Mass Index) 35.6 kg/m2 04/19/2018 2:36pm BP Systolic 122 mmHg BP Diastolic 82 mmHg Height 61 inches 5'1" Weight 196.00 lb BMI (Body Mass Index) 37.0 kg/m2 Last Menstrual Period 2221003 7 Parity 4 01/05/2018 2:50pm BP Systolic 142 mmHg BP Diastolic 100 mmHg Height 61 inches 5'1" Weight 202.00 lb BMI (Body Mass Index) 38.2 kg/m2 Last Menstrual Period 3973170 7 Parity 4 09/04/2017 10:42am BP Systolic 152 mmHg BP Diastolic 102 mmHg Height 61 inches 5'1" Weight 200.00 lb BMI (Body Mass Index) 37.8 kg/m2 Last Menstrual Period 9115400 6 Parity 4 09/16/2014 10:07am BP Systolic 108 mmHg BP Diastolic 78 mmHg Height 61 inches 5'1" Weight 185.00 lb BMI (Body Mass Index) 35.0 kg/m2 Last Menstrual Period 8455794 Mirena 6 Parity 4 08/15/2014 12:49pm BP Systolic 128 mmHg BP Diastolic 80 mmHg Height 61 inches 5'1" Weight 187.00 lb BMI (Body Mass Index) 35.3 kg/m2 Last Menstrual Period 5561035 6 Parity 4 08/13/2014 10:18am BP Systolic 134 mmHg BP Diastolic 82 mmHg Height 61 inches 5'1" Weight 183.00 lb BMI (Body Mass Index) 34.6 kg/m2 Last Menstrual Period 0216423 6 Parity 4 06/11/2014 1:58pm BP Systolic 142 mmHg BP Diastolic 84 mmHg Body Temperature 98.3 F Heart Rate 76 /min Respiratory Rate 12 /min Height 61 inches 5'1" Weight 185.00 lb BMI (Body Mass Index) 35.0 kg/m2 Last Menstrual Period 9222197 6 Parity 4 06/03/2014 9:04am BP Systolic 118 mmHg BP Diastolic 68 mmHg Height 61 inches 5'1" Weight 185.00 lb BMI (Body Mass Index) 35.0 kg/m2 Last Menstrual Period 5564550 03/04/2010 3:23pm BP Systolic 102 mmHg BP Diastolic 74 mmHg Height 61.75 inches 5'1.75" Weight 173.00 lb BMI (Body Mass Index) 31.9 kg/m2 01/21/2010 1:30pm BP Systolic 104 mmHg BP Diastolic 70 mmHg Height 61.75 inches 5'1.75" Weight 173.00 lb BMI (Body Mass Index) 31.9 kg/m2 Last Menstrual Period 1189522 5 Parity 4 01/04/2010 1:43pm BP Systolic 112 mmHg BP Diastolic 76 mmHg Height 61.75 inches 5'1.75" Weight 177.00 lb BMI (Body Mass Index) 32.6 kg/m2 5 Parity 4 12/03/2009 2:48pm BP Systolic 100 mmHg BP Diastolic 60 mmHg Height 61.75 inches 5'1.75" Weight 177.00 lb BMI (Body Mass Index) 32.6 kg/m2 03/31/2009 8:17am BP Systolic 116 mmHg BP Diastolic 66 mmHg Height 61.75 inches 5'1.75" Weight 171.00 lb BMI (Body Mass Index) 31.5 kg/m2 06/02/2008 8:17am BP Systolic 114 mmHg BP Diastolic 68 mmHg Height 63 inches 5'3" Weight 158.00 lb BMI (Body Mass Index) 28.0 kg/m2 Last Menstrual Period 0 05/27/2008 1:39pm BP Systolic 110 mmHg BP Diastolic 76 mmHg Height 63 inches 5'3" Weight 131.00 lb BMI (Body Mass Index) 23.2 kg/m2 Last Menstrual Period 1750325 4 Parity 3 06/08/2007 10:45am BP Systolic 122 mmHg BP Diastolic 80 mmHg Weight 160.00 lb Results Test Date Facility Test Result H/L Range Note Laboratory test 05/04/2018 [facility] HCG 13.58 mIU/ mL 1 [place] [address] [phone] Laboratory test 04/25/2018 [facility] HCG 219.56 mIU/ mL 2 finding [place] [address] [phone] Laboratory 04/21/2018 N2N/CCD Import Hematocrit 34 % Low 35-47 Studies Hemoglobin 11.5 g/dL Low 12.0-16.0 Laboratory Studies 04/20/2018 N2N/CCD Import Absolute Basophils 0.1 10^3/ ul 0-0.2 (auto) Absolute Eosinophils (auto) 0.6 10^3/ul 0-0.6 Absolute Lymphocytes (auto) 2.4 10^3/ul 1.0-4.8 Absolute Monocytes (auto) 0.5 10^3/ul 0-0.8 Absolute Neutrophils (auto) 3.9 10^3/ul 1.5-7.7 Alanine Aminotransferase (Alt/SGPT) 23 U/L 7-52 Albumin 4.4 g/dL 3.2-5.2 Albumin/Globulin Ratio 1.6 1-3 Alkaline Phosphatase 83 U/L 34-104 Anion Gap 8 mmol/L 2-11 Aspartate Amino Transf (Ast/Sgot) 19 U/L 13-39 BUN/Creatinine Ratio 15.8 8-20 Basophils (%) (Auto) 1.0 % Beta HCG, Quantitative 6727.00 mIU/mL Blood Urea Nitrogen 12 mg/dL 6-24 Calcium Level 9.7 mg/dL 8.6-10.3 Carbon Dioxide Level 24 mmol/L 22-32 Chloride Level 103 mmol/L 101-111 Creatinine 0.76 mg/dL 0.51-0.95 Eosinophils (%) (Auto) 7.6 % Estimated GFR () 103.1 Estimated GFR (Non- 85.2 Globulin 2.7 g/dL 2-4 Glucose Level 98 mg/dL 70-100 Lymphocytes (%) (Auto) 32.4 % Mean Corpuscular Hemoglobin 30 pg 27-31 Mean Corpuscular Hemoglobin Concent 34 g/dL 31-36 Mean Corpuscular Volume 90 fL 80-97 Mean Platelet Volume 7.9 fL 7.4-10.4 Monocytes (%) (Auto) 6.7 % Neutrophils (%) (Auto) 52.3 % Nucleated RBC Absolute Count (auto) 0 10^3/ul Nucleated Red Blood Cells % 0.1 Platelet Count 361 10^3/ul 150-450 Potassium Level 3.6 mmol/L 3.5-5.0 Red Blood Count 4.40 10^6/ul 4.00-5.40 Red Cell Distribution Width 14 % 10.5-15 Sodium Level 135 mmol/L 135-145 Total Bilirubin 0.30 mg/dL 0.2-1.0 Total Protein 7.1 g/dL 6.4-8.9 White Blood Count 7.5 10^3/ul 3.5-10.8 Laboratory test 04/19/2018 [facility] HCG 49[address].00 [address] [place] [address] mIU/mL [phone] Laboratory 04/15/2018 N2N/CCD Import Urine Specific 1.028 1.010 Studies [place] -1.03 0 Urine pH 5.0 5-9 Laboratory test 01/12/2018 [facility] HCG < 0.60 4, 5 [place] [address] mIU/mL [phone] Laboratory test 01/05/2018 [facility] HCG 2.15 mIU/mL 6 [place] [address] [phone] Laboratory test 09/04/2017 [facility] Cytology SEE RESULT 7 finding [place] [address] BELOW [phone] Laboratory test 06/13/2014 [facility] Surgical RUN DATE: 8 finding [place] [address] Pathology 06/16/ <SEE [phone] NOTE> CBC Auto Diff 06/11/2014 [facility] White Blood 7.3 10^3/uL N 4.8-1 9 [place] [address] Count 0.8 [phone] Red Blood Count 4.20 10^6/uL N 4.0-5.4 Hemoglobin 13.1 g/dL N 12.0-16.0 Hematocrit 40 % N 35-47 Mean Corpuscular Volume 94 fL N 80-97 Mean Corpuscular Hemoglobin 31 pg N 27-31 Mean Corpuscular HGB Conc 33 g/dL N 31-36 Red Cell Distribution Width 15 % N 10.5-15 Platelet Count 343 10^3/uL N 150-450 Mean Platelet Volume 9 um3 N 7.4-10.4 Abs Neutrophils 4.8 10^3/uL N 1.5-7.7 Abs Lymphocytes 1.9 10^3/uL N 1.0-4.8 Abs Monocytes 0.4 10^3/uL N 0-0.8 Abs Eosinophils 0.1 10^3/uL N 0-0.6 Abs Basophils 0.1 10^3/uL N 0-0.2 Abs Nucleated RBC 0.01 10^3/uL N Granulocyte % 65.9 % N 38-83 Lymphocyte % 26.0 % N 25-47 Monocyte % 5.4 % N 1-9 Eosinophil % 1.9 % N 0-6 Basophil % 0.8 % N 0-2 Nucleated Red Blood Cells % 0.1 N Type And Screen 06/11/2014 [facility] Patient [place] [address] [phone] Antibody Screen NEGATIVE N Laboratory 06/05/2014 [facility] Beta HCG 04245.00 High 0.0- 5.0 10 [place] [address] Quantitative IU/mL [phone] Laboratory 06/03/2014 [facility] Beta HCG 50994.00 High 0.0- 5.0 11 [place] [address] Quantitative IU/mL [phone] GC/Chlamydia 12/03/2009 [facility] GC By Aptima NEGATIVE Negative 12 [place] [address] [phone] CHL By Aptima NEGATIVE Negative 13 Urine Culture & 10/13/2009 [facility] Urine Culture SN1 14 [place] [address] Sensitivi [phone] Laboratory test 09/28/2009 [facility] Genital For NG2 [address] [place] [address] GRP B Strep [phone] Only Laboratory test 08/18/2009 [facility] Genital NF3 [address] [place] [address] Culture [phone] Laboratory test 06/09/2009 [facility] Throat Culture HAEMOPHILUS INFL 17 [place] [address] Full <SEE NOTE> [phone] 1 03/31/2009 [facility] White Blood 8.4 CUMM 4.8-1 [place] [address] Count 0.8 [phone] Red Cell Count 4.38 CUMM 4.2-5.4 Hemoglobin 13.2 g/dL 12.0-16.0 Hematocrit 40 % 35-47 Mean Corpuscular Volume 91 um3 79-97 Mean Corpuscular Hemoglob 30 pg 27-31 Mean Corpuscular HGB Cone 33 g/dL 32-36 Redcell Distribution WDTH 14 % 10.5-15 Platelet Count 324 CUMM 150-450 Mean Platelet Volume 8.2 um3 7.4-10.4 Gran % 71.3 % 38-83 Lymph % 20.6 % Low 25-47 Mononuclear % 6.2 % 1-9 Eosinophil % 1.4 % 0-6 Basophil % 0.5 % 0-2 Abs Lymphs 1.7 1.0-4.8 Abs Mononuclear 0.5 0-0.8 Absolute Neutrophil Count 6.0 1.5-7.7 Abs Eosinophils 0.1 0-0.6 Abs Basophils 0 0-0.2 Syphilis IgG NON-REACTIVE Nonreactive 18 Hepatitis B Surface Ag NEGATIVE Negative Rubella Screen IMMUNE Immune Urine Culture & 03/31/2009 [facility] Urine Culture NG 19 [place] [address] Sensitivi [phone] Hemoglobinopathy 03/31/2009 [facility] Erythrocyte 4.17 3.80- Evaluation Count Mill/uL 5.10 Hemoglobin 13.2 g/dL 11.7-15.5 Hematocrit 38.7 % 35.0-45.0 MCV 92.7 FL 80.0-100.0 MCH 31.6 pg 27.0-33.0 RDW 15.3 % High 11.0-15.0 Hemoglobin A 96.8 % >96.0 Hemoglobin F 0.6 % <2.0 Hemoglobin A2 2.6 % 1.8-3.5 Hemoglobin S DNR Hemoglobin C DNR Hemoglobin E (HGB E) DNR Abnormal Hemoglobin 1 DNR Abnormal Hemoglobin 2 DNR Interpretation see note 20 Parvovirus B19 AB 03/31/2009 [facility] Parvovirus B19 AB (Igm) 0.1 index < 0.9 21 (Igg,M) Parvovirus B19 AB (Igg) 4.9 index High <0.9 Vad 03/31/2009 [facility] Vad Final NONREACTIVE Nonreactive [address] [place] [address] [phone] 1 TS 03/31/2009 [facility] [place] [address] Blood Type [phone] Antibody Screen NEGATIVE Pap Test 05/27/2008 [facility] Cytology [address] [place] [address] <SEE NOTE> [phone] GC/ZHL On 05/27/2008 [facility] GC On Thin NEGATIVE Negative 24 [place] [address] Prep Vial [phone] CHL On Thin Prep Vial NEGATIVE Negative 25 GC/ZHL On Thin 06/11/2007 [facility] CHL On Thin NEGATIVE Negative 26 [place] [address] Prep Vial [phone] GC On Thin Prep Vial NEGATIVE Negative 27 Laboratory test 06/08/2007 [facility] Cytology [address] [place] [address] <SEE NOTE> [phone] Laboratory test 04/06/2007 [facility] Genital For FINAL: NEGATIVE [address] [place] [address] GRP B Strep <SEE NOTE> [phone] Only Laboratory test 02/19/2007 [facility] Urine Culture NG [address] [place] [address] Sensitivi [phone] 1 <5.0 Negative 5.0 - 25.0 Indeterminate (Repeat testing recommended after 72 hours) >25.0 Positive Perimenopausal women can display HCG levels of up to 20 mIU/mL 2 <5.0 Negative 5.0 - 25.0 Indeterminate (Repeat testing recommended after 72 hours) >25.0 Positive Perimenopausal women can display HCG levels of up to 20 mIU/mL 3 <5.0 Negative 5.0 - 25.0 Indeterminate (Repeat testing recommended after 72 hours) >25.0 Positive Perimenopausal women can display HCG levels of up to 20 mIU/mL 4 PLEASE DRAW 01/08/18 5 <5.0 Negative 5.0 - 25.0 Indeterminate (Repeat testing recommended after 72 hours) >25.0 Positive Perimenopausal women can display HCG levels of up to 20 mIU/mL 6 <5.0 Negative 5.0 - 25.0 Indeterminate (Repeat testing recommended after 72 hours) >25.0 Positive Perimenopausal women can display HCG levels of up to 20 mIU/mL 7 SEE RESULT BELOW Name: BREANA HUNTER : [address]: Jerry Bejarano MD Acct: [id number] Unit: [id number] AGE: 37 Location: [facility] Re09/04/17 SEX: F Status: REG REF SPEC: [id number] RAHUL: 09/04/17-1158 [facility] [address]: Jerry Bejarano MD REQ: [id number] RECD: 09/04/177796 STATUS: SOUT _ ORDERED: TP IMAGE ANALYS, HPV/Thin Prep COMMENTS: [id number] Negative for Intraepithelial lesion or Malignancy A. Ectocervical/Endocervical Specimen Adequacy: Satisfactory of evaluation Transformation zone component identified Patient Information: HPV: High risk HPV RNA testing regardless of pap results. Actual Specimen Date: 09/04/17 Last Menstrual Date: 07/29/17 Spec Date if unknown: 2013 Date Time Test Result Flag (u) Normal Range 09/04/17 9321 @ HPV RNA Negative Negative @ @ The high-risk HPV types detected by the assay include: 16, @ 18, 31, 33, 35, 39, 45, 51, 52, 56, 58, 59, 66, and 68. Signed by and Reported on: TAWAAN Alcantara(ASCP) 8701 This Pap test was evaluated with the assistance of the [employer] SantéPrep Test Imaging System. Due to cytologic findings at the regrinder operator microscope, comprehensive manual rescreening by a Shampoo Technician may be required. The Pap Smear is a screening test designed to aid in the detection of premalignant and malignant conditions of the uterine cervix. It is not a diagnostic procedure and should not be used as the sole means of detecting cervical cancer. Both false- positive and false- negative reports do occur. Depending on your risk status, a Pap smear should be obtained and evaluated every 1-3 years. END OF REPORT DEPARTMENT OF PATHOLOGY, [address] [place] [address] Nasim Landry M.D. Director [facility] # [id number] RUN DATE: 06/16/14 [facility] LAB LIVE PAGE 1 RUN TIME: 1146 [address] [facility] [place], [place] [address] Specimen Inquiry Name: BREANA HUNTER : [address]: Calista Garcia MD Acct: [id number] Unit: [id number] AGE: 34 Location: [place] Re06/13/14 SEX: F Status: REG [facility] SPEC: [id number] RAHUL: 06/13/14-[address]: Calista Garcia MD REQ: [id number] RECD: 06/13/14-2870 STATUS: SOUT _ ORDERED: LEVEL IV FINAL DIAGNOSIS Uterus, contents: -- Products of conception, including immature chorionic villi. PRE-OPERATIVE DIAGNOSIS Missed . GROSS DESCRIPTION The specimen is received in formalin labeled, POC, and consists of a 5.5 x 4.1 x 1.3 cm aggregate of mancia-pink membranous and papilliferous soft tissue fragments admixed with scant red-brown blood clot. Chorionic villi are identified. No parts are identified. Anatomy And Physiology Instructor sections, two cassettes. Signed (signature on file) Nasim Landry MD 1146 END OF REPORT * ML=Testing performed at Main Lab DEPARTMENT OF PATHOLOGY, [address] [place] [address] Nasim Landry M.D. Director [facility] # [id number] SDS 06/13/14 MISSED 10 <5.0 Negative 5.0 - 25.0 Indeterminate >25.0 Positive 11 <5.0 Negative 5.0 - 25.0 Indeterminate >25.0 Positive 12 . A negative result does not preclude the presence of a C.trachomatis or N.gonorrhoeae infection because results are dependent on adequate specimen collection, absence of inhibitors, and sufficient rRNA to be detected. Test results may be affected by improper specimen collection, improper specimen storage, technical error, or specimen mixup. . 13 . A negative result does not preclude the presence of a C.trachomatis or N.gonorrhoeae infection because results are dependent on adequate specimen collection, absence of inhibitors, and sufficient rRNA to be detected. Test results may be affected by improper specimen collection, improper specimen storage, technical error, or specimen mixup. . 14 SCANT NORMAL URETHRAL OR PERINEAL TRUNG 15 FINAL: NEGATIVE FOR GROUP B STREPTOCOCCUS 16 NORMAL GENITAL TRUNG 17 HAEMOPHILUS INFLUENZAE MOD^MODERATE^QTY NORMAL TRUNG MOD^MODERATE^QTY 18 Warning: A positive result is not useful for establishing a diagnosis of syphilis. In most situations, such a result may reflect a prior treated infection; a negative result can exclude a diagnosis of syphilis except for incubating or early primary disease. 19 FINAL: NO GROWTH DAY 2 (<1,000 CFU/mL) 20 Normal Phenotype. 21 Reference range: IgG and IgM Index <0.9 Negative 0.9-1.1 Equivocal >1.1 Positive Interpretation: NEGATIVE: No antibody detected. This individual may be susceptible to parvovirus B-19 infection. POSITIVE: Indicative of exposure to parvovirus B-19. EQUIVOCAL results are those results too close to the cut-off values to interpret. A second sample should be drawn in two weeks, if clinically indicated. Specific IgG persists for years, and provides lifetime immunity. A majority of adults show evidence of past infection. If definitive diagnosis of acute parvovirus infection is desired, a parvovirus B-19 IgM should be obtained. Due to the poor humoral immune response in the immunocompromised, the chronically anemic, and the fetus, both antibody and DNA PCR tests are recommended for definitive diagnosis of parvovirus B-19 infection in these patients. 22 FINAL INTERPRETATION: No HIV antibody is detected. . This information has been disclosed to you from confidential records which are protected by [place] State law. State law prohibits you from making further disclosure of this information without the specific written consent of the person to whom it pertains, or as otherwise permitted by law. Any unauthorized further disclosure in violation of state law may result in a fine or custodial sentence or both. General authorization for the release of medical or other information is not, except in limited circumstances set forth in Part 63, Title 10, of [facility], sufficient authorization for further disclosure. Disclosure of confidential HIV information that occurs as the result of a general authorization for the release of medical or other information will be in violation of the state law and may result in a fine or a custodial sentence. . 23 ---- RUN DATE: 07/09/08 [facility] NMI LIVE PAGE 1 RUN TIME: 1037 Specimen Inquiry RUN USER: INTERFACE -- Name: VENITA HUNTERELLE Status: REG REF Re05/25/08 Age/Sex: 28/F Unit#: [id number] Location: [facility] : [birth year] -- Specimen: [id number] SOUT Spec Date: 05/27/08 [facility] Dr: Mireya Sargent mp GAS ENGINE MECHANIC Spec Type: CYTOLOGY Received: 05/28/08-1250 Copies to: SOURCE ECTOCERVICAL/ENDOCERVICAL Thin Prep with Reflex HPV Test PATIENT INFORMATION ACTUAL COLLECTION DATE: 05/27/08 LAST MENSTRUAL PERIOD: 05/13/08 ADEQUACY OF SPECIMEN Satisfactory for evaluation * Transformation zone component identified * DIAGNOSIS NEGATIVE FOR INTRAEPITHELIAL LESION OR MALIGNANCY * ADDENDUM Addendum #1 Entered: 07/09/08-1034 DIAGNOSIS UNCHANGED. RESENDING RESULTS TO INTERFACE. Addendum Review Tawny ZAFAR(ASCP) 07/09/08 -- This Pap test was evaluated with the assistance of the ThinPrep Pap Test Imaging System. The Pap Smear is a screening test designed to aid in the detection of premalign ant and malignant conditions of the uterine cervix. It is not a diagnostic procedure a nd should not be used as the sole means of detecting cervical cancer. Both false- positiv e and false-negative reports do occur. Depending on your risk status, a Pap smear inocente uld be obtained and evaluated every one to three years. -- DEPARTMENT OF PATHOLOGY, [address] [place] [address] [facility] Permit #[id number] Orin Borja M.D. English And Reading Instructor Dir harkinsor -- -- RUN DATE: 07/09/08 [facility] NMI LIVE PAGE 2 RUN TIME: 1037 Specimen Inquiry RUN USER: INTERFACE -- Name: BREANA HUNTER Status: REG REF Re05/25/08 Age/Sex: 28/F Unit#: [id number] Location: [facility] : [birth year] -- -- CONTINUED -- Final Interpretation electronically signed by: Tawny ZAFAR([facility]) 05/28/08 160 3 -- -- DEPARTMENT OF PATHOLOGY, [address] [place] [address] [facility] Permit #[id number] Orin Borja M.D. English And Reading Instructor Dir [place] -- 24 . A negative result does not preclude the presence of a C.trachomatis or N.gonorrhoeae infection because results are dependent on adequate specimen collection, absence of inhibitors, and sufficient rRNA to be detected. Test results may be affected by improper specimen collection, improper specimen storage, technical error, or specimen mixup. . 25 . A negative result does not preclude the presence of a C.trachomatis or N.gonorrhoeae infection because results are dependent on adequate specimen collection, absence of inhibitors, and sufficient rRNA to be detected. Test results may be affected by improper specimen collection, improper specimen storage, technical error, or specimen mixup. . 26 . A negative result does not preclude the presence of a C.trachomatis or N.gonorrhoeae infection because results are dependent on adequate specimen collection, absence of inhibitors, and sufficient rRNA to be detected. Test results may be affected by improper specimen collection, improper specimen storage, technical error, or specimen mixup. . 27 . A negative result does not preclude the presence of a C.trachomatis or N.gonorrhoeae infection because results are dependent on adequate specimen collection, absence of inhibitors, and sufficient rRNA to be detected. Test results may be affected by improper specimen collection, improper specimen storage, technical error, or specimen mixup. . 28 ---- RUN DATE: 06/15/07 [facility] LIVE PAGE 1 RUN TIME: 813 Specimen Inquiry RUN USER: INTERFACE [id number] BREANA HUNTER <REG REF 06/08> ([id number]) Kelvin COOK CNM -- Specimen: [id number] ELIAN Spec Date: 06/08/[address]: Kelvin Cash CNM Spec Type: CYTOLOGY Received: 06/14/07-1532 Copies to: SOURCE ECTOCERVICAL/ENDOCERVICAL Thin Prep with Reflex HPV Test PATIENT INFORMATION ACTUAL COLLECTION DATE: 06/08/07 ADEQUACY OF SPECIMEN Satisfactory for evaluation * Transformation zone component identified * DIAGNOSIS NEGATIVE FOR INTRAEPITHELIAL LESION OR MALIGNANCY * This Pap test was evaluated with the assistance of the [employer] Pap Test Imaging System. The Pap Smear is a screening test designed to aid in the detection of premalign ant and malignant conditions of the uterine cervix. It is not a diagnostic procedure a nd should not be used as the sole means of detecting cervical cancer. Both false- positive and false-negative reports do occur. Depending on your risk status, a Pap smear inocente uld be obtained and evaluated every one to three years. Final Interpretation electronically signed by: Tawny ZAFAR(ASC) 06/15/07 081 4 -- -- DEPARTMENT OF PATHOLOGY, [address] [place] [address] [facility] Permit #[id number] Nasim Landry M.D. Director of Laboratories -- 29 FINAL: NEGATIVE FOR GROUP B STREPTOCOCCUS 30 FINAL: NO GROWTH DAY 2 (<1,000 CFU/mL) Procedures Date Code Description Status 04/25/2018 26889 Echography Transvaginal Completed 04/19/2018 99986 OB Ultrasound First Trimester Completed 01/05/2018 66411 Echography Transvaginal Completed 08/15/2014 37012 Insert Intrauterine Device Completed 06/13/2014 68323 Incomplete, Completed Surgically Completed 06/03/2014 96014 OB Ultrasound First Trimester Completed 01/21/2010 75952 Insert Intrauterine Device Completed 10/29/2009 85182 Obstetric Care Routine Completed 08/29/2009 42338 Non-Stress Test Completed 06/09/2009 20559 Echography Uterus Complete Completed 04/15/2009 02855 Nuchal Translucency Ultrasound /First Gestation Completed 05/07/2007 33084 Obstetric Care Routine Completed 03/19/2007 40249 Echography Uterus Complete Completed 03/19/2007 44358 Echography Uterus Complete Completed Encounters Type Date Location Provider Dx Diagnosis Office Visit 04/25/2018 [facility] Office Calista Garcia, O03.9 Complete or unsp 8:45a spontaneous without complication Office Visit 04/19/2018 [facility] Anat Clayton O36.80x0 w 2:40p PEYTON Chaudhry inconclusive viability, unsp Office Visit 01/05/2018 [facility] Office Donn Vega MD O36.80x0 w 3:15p inconclusive viability, unsp Office Visit 09/04/2017 [facility] Jeryr Bejarano, Z01.411 Encntr for purse seining hand exam 10:40a Orin (general) (routine) w abnormal findings D48.62 Neoplasm of uncertain behavior of left breast Z30.432 Encounter for removal of intrauterine contraceptive device Office Visit 09/16/2014 10:30a [facility] Yvrose Cruz V25.42 Contraceptive INSTRUCTOR DECORATING Intrauterine Device Surveillance Office Visit 08/13/2014 11:30a [facility] Jose V25.09 Contraceptive MD Calista Management Other V45.89 Postsurgical Status Other Office Visit 06/11/2014 2:00p [facility] Calista Garcia, V72.83 Examination MD Preoperative Other Spec 632 Missed Office Visit 06/03/2014 9:00a [facility] Office Joy Hawthorne, 640.03 Threatened CNM Antepartum Condition Or Complication 640.00 Threatened Episode Of Care Unspec Or N/A Office Visit 03/04/2010 3:20p [facility] Jerry Leach V25.42 Contraceptive Orin Bejarano Intrauterine Device Surveillance Office Visit 01/04/2010 1:40p [facility] Jerry Leach V25.1 Intrauterine Orin Bejarano Contraceptive Device Insertion V25.49 Contraceptive Other Method Surveillance Office Visit 10/13/2009 8:00a [facility] Mireya Sinha V77.1 Screening Diabetes ANP-C Mellitus V22.1 Supervison Of Normal Other Office Visit 08/29/2009 1:54p Delivery Miranda Muñoz 644.13 Labor Threatened INSTRUCTOR DECORATING, CNM Other Antepartum Cond Or Compl Office Visit 06/02/2008 9:00a [facility] Jerry Leach V25.49 Contraceptive Other Orin Bejarano Method Surveillance Office Visit 05/27/2008 1:20p [facility] Mireya Sinha V72.[address] Technician ANP-C Examination V76.2 Screening Malignant Neoplasm Cervix V41.7 Sexual Function Problem V25.49 Contraceptive Other Method Surveillance Plan of Treatment 04/25/2018 - Calista Garcia, MDO03.9 Complete or unspecified spontaneous without complicComments:Will check hcg and follow to <5. Then plan to start OCPs. Will call pt tomorrow with results. Needs note to go back to work. 3mo f/u visit.
--- OUTSIDE RECORDS SUMMARY | 2018-08-19 09:17 | XMS REPORT ---
:1980 Author Organization [facility] Address [address] [place] [address] Care Team Providers Name Role Phone Fred Jaimes Unavailable Unavailable PROBLEMS Type Condition ICD9-CM EKS90-BG Onset Condition SNOMED Code Code Code Dates Status Problem Other chronic pain G89.29 Active 89770727 Problem Other obesity due to E66.09 Active 425490529 excess calories Problem Dysthymia F34.1 Active 79436510 Problem Borderline R03.0 Active 370477360 hypertension Problem Pain in thoracic M54.6 Active 454012825104274 spine Problem Missed menses N92.6 Active 84872344 Problem Hiatal hernia K44.9 Active 02021456 Problem Gastroesophageal K21.9 Active 936189524 reflux disease without esophagitis Problem BMI 37.0-37.9, adult Z68.37 Active 228405935 Problem Breast lump N63.0 Active 46067041 ALLERGIES No Information ENCOUNTERS Encounter Location Date Diagnosis [address] Jul, [place] [address] Jun, [place] [address] May, Dysthymia F34.1 [place] [address] [place] [address] Apr, [place] [address] [place] [address] Apr, Dysthymia F34.1 [place] [address] [place] [address] Feb, Less than 8 [place] [address] of Z3A.[address] Feb, [place] [address] Feb, Dysthymia F34.1 ; [place] [address] Gastroesophageal reflux disease without esophagitis K21.9 and Missed menses N92.[address] Feb, [place] [address] Dec, [place] [address] Nov, [place] [address] Nov, [place] [address] Nov, Dysthymia F34.1 [place] [address] Oct, [place] [address] Oct, Dysthymia F34.1 [place] [address] Sep, Other [place] [address] calories E66.09 ; Hiatal hernia K44.9 ; BMI 37.0-37.9, adult Z68.37 ; Dysthymia F34.1 ; Breast lump N63.0 and Borderline hypertension R03.[address] Sep, [place] [address] Sep, [place] [address] Sep, Dysthymia F34.1 ; [place] [address] obesity due to excess calories E66.09 ; BMI 37.0-37.9, adult Z68.37 and Family planning counseling Z30.[address] August, [place] [address] August, [place] [address] [facility] August, [place] [address] August, [place] [address] August, [place] [address] August, Lump of left breast N63.20 [place] [address] and Hypertension, unspecified type I10 [address] Jul, [place] [address] Jul, Dysthymia F34.1 ; [place] [address] thoracic spine M54.6 ; Other chronic pain G89.29 ; Gastroesophageal reflux disease without esophagitis K21.9 ; Hiatal hernia K44.9 ; Other obesity due to excess calories E66.09 and Body mass index (BMI) of 38.0-38.9 in adult Z68.[address] May, [place] [address] IMMUNIZATIONS No Known Immunizations SOCIAL HISTORY Never Assessed REASON FOR REFERRAL FUNCTIONAL STATUS PLAN OF CARE VITAL SIGNS MEDICATIONS Unknown Medications PROCEDURES No Known procedures RESULTS No Results REASON FOR VISIT Acute triage Insurance Providers [facility] Member Patient Patient Patient Patient Patient Subscriber Subscriber Subscriber Group Insurance Plan Plan Plan Plan ID Relationship Address Phone Name Date of ID Name Date of No Type Insurance Insurance Insurance Coverage to Subscriber Address Phone Name Dates [employer] [address] [address] [employer] Breana [id number] BCBS PPO [id number] BCBS PPO Felix 7 EPO Tr[place] Trad [id number] Case [phone] Case self Breana [id number] Management Nacho Browne [address] MEDICAL (GENERAL) HISTORY Type Description Date Medical History migraine Medical History GERD Medical History Shingles Medical History Depression Medical History sleep apnea Surgical History appendectomy 04/2014 Surgical History 3 miscarriages Surgical History D&C, twice in 2006 and once in 2014
--- OUTSIDE RECORDS SUMMARY | 2018-08-19 09:17 | XMS REPORT | Continuity of Care Document ---
:1980 External Reference #:[id number] Author Name Fanta Jo Care Team Providers Name Role Phone Jesusita Zayas MD Primary Care Physician Unavailable Payers Date Identification Numbers Payment Provider Subscriber Policy Number: [id number] Omar[facility] Breana Hunter PayID: [id number] [address] [address] [place] [address] Advance Directives Description No Information Available Problems [...] 1 tablet PO once 30units Isaura Carroll, [facility] 10/05/2009 - 40mg daily, swallow 12/04/2009 whole. PNV-Dha 1 po qd 100caps Miranda Muñoz [employer], 07/07/2009 - CNM 03/03/2010 27-0.6-0.4-300mg Capsules Famotidine one tablet PO bid 60tabs Mireya Jump, 03/31/2009 - 10mg as needed for ANP-C 12/04/2009 Tablets heartburn Mircette 1 PO qd 28tabs Mireya Jump, 05/27/2008 - 28Day ANP-C 03/30/2009 Tablets Monistat 3 1 Applicator Per Joy Hawthorne, [facility] 04/04/2007 - 4% Cream Vagina Has X3 03/30/2009 Terazol 7 apply per 45gm Laksiha York, 03/20/2007 - 0.4% Cream directions hs x 7 [facility] 04/04/2007 days Bactrim Unknown - 08/13/2014 [...] Mass Index) 36.7 kg/m2 Last Menstrual Period 4112549 9 Parity 4 04/25/2018 8:46am BP Systolic 126 mmHg BP Diastolic 80 mmHg Height 61 inches 5'1" Weight 194.00 lb BMI (Body Mass Index) 36.7 kg/m2 Last Menstrual Period 0166966 8 Parity 4 04/21/2018 12:00am BP Systolic [...] Mass Index) 37.0 kg/m2 Last Menstrual Period 5894059 7 Parity 4 01/05/2018 2:50pm BP Systolic 142 mmHg BP Diastolic 100 mmHg Height 61 inches 5'1" Weight 202.00 lb BMI (Body Mass Index) 38.2 kg/m2 Last Menstrual Period 1457043 7 Parity 4 09/04/2017 10:42am BP Systolic 152 mmHg BP Diastolic 102 mmHg Height 61 inches 5'1" Weight 200.00 lb BMI (Body Mass Index) 37.8 kg/m2 Last Menstrual Period 8128857 6 Parity 4 09/16/2014 10:07am BP Systolic 108 mmHg BP Diastolic 78 mmHg Height 61 inches 5'1" Weight 185.00 lb BMI (Body Mass Index) 35.0 kg/m2 Last Menstrual Period 4334137 Mirena 6 Parity 4 08/15/2014 12:49pm BP Systolic 128 mmHg BP Diastolic 80 mmHg Height 61 inches 5'1" Weight 187.00 lb BMI (Body Mass Index) 35.3 kg/m2 Last Menstrual Period 6034128 6 Parity 4 08/13/2014 10:18am BP Systolic 134 mmHg BP Diastolic 82 mmHg Height 61 inches 5'1" Weight 183.00 lb BMI (Body Mass Index) 34.6 kg/m2 Last Menstrual Period 6736116 6 Parity 4 06/11/2014 1:58pm BP Systolic 142 mmHg BP Diastolic 84 mmHg Body Temperature 98.3 F Heart Rate 76 /min Respiratory Rate 12 /min Height 61 inches 5'1" Weight 185.00 lb BMI (Body Mass Index) 35.0 kg/m2 Last Menstrual Period 8105752 6 Parity 4 06/03/2014 9:04am BP Systolic 118 mmHg BP Diastolic 68 mmHg Height 61 inches 5'1" Weight 185.00 lb BMI (Body Mass Index) 35.0 kg/m2 Last Menstrual Period 4224408 03/04/2010 3:23pm BP Systolic 102 mmHg BP Diastolic 74 mmHg Height 61.75 inches 5'1.75" Weight 173.00 lb BMI (Body Mass Index) 31.9 kg/m2 01/21/2010 1:30pm BP Systolic 104 mmHg BP Diastolic 70 mmHg Height 61.75 inches 5'1.75" Weight 173.00 lb BMI (Body Mass Index) 31.9 kg/m2 Last Menstrual Period 1816338 5 Parity 4 01/04/2010 1:43pm BP Systolic [...] Mass Index) 23.2 kg/m2 Last Menstrual Period 9234969 4 Parity 3 06/08/2007 10:45am BP Systolic 122 mmHg BP Diastolic 80 mmHg Weight 160.00 lb Results Test Date Facility Test Result H/L Range Note Laboratory test 05/04/2018 [facility] HCG 13.58 mIU/ mL 1 [place] [address] [phone] Laboratory test 04/25/2018 [facility] HCG 219.56 mIU/ mL 2 finding [place] [address] [phone] Laboratory 04/21/2018 N2N/CCD Import Hematocrit 34 % [...] Count 7.5 10^3/ul 3.5-10.8 Laboratory test 04/19/2018 [facility] HCG 85434.00 [address] [place] [address] mIU/mL [phone] Laboratory 04/15/2018 N2N/CCD Import Urine Specific 1.028 1.010 Studies [place] -1.03 0 Urine pH 5.0 5-9 Laboratory test 01/12/2018 [facility] HCG < 0.60 4, 5 [place] [address] mIU/mL [phone] Laboratory test 01/05/2018 [facility] HCG 2.15 mIU/mL 6 [place] [address] [phone] Laboratory test 09/04/2017 [facility] Cytology SEE RESULT 7 finding [place] [address] BELOW [phone] Laboratory test 06/13/2014 [facility] Surgical RUN DATE: 8 [place] [address] Pathology 06/16/ <SEE [phone] NOTE> CBC Auto Diff 06/11/2014 [facility] White Blood 7.3 10^3/uL N 4.8-1 9 [place] [address] Count 0.8 [phone] Red Blood Count 4.20 10^6/uL N 4.0-5.4 [...] % 0.1 N Type And Screen 06/11/2014 [facility] Patient [place] [address] [phone] Antibody Screen NEGATIVE N Laboratory 06/05/2014 [facility] Beta HCG 76030.00 High 0.0- 5.0 10 [place] [address] Quantitative IU/mL [phone] Laboratory 06/03/2014 [facility] Beta HCG 74740.00 High 0.0- 5.0 11 [place] [address] Quantitative IU/mL [phone] GC/Chlamydia 12/03/2009 [facility] GC By Aptima NEGATIVE Negative 12 [place] [address] [phone] CHL By Aptima NEGATIVE Negative 13 Urine Culture & 10/13/2009 [facility] Urine Culture SN1 [address] [place] [address] Sensitivi [phone] Laboratory test 09/28/2009 [facility] Genital For NG2 [address] [place] [address] GRP B Strep [phone] Only Laboratory test 08/18/2009 [facility] Genital NF3 [address] [place] [address] Culture [phone] Laboratory test 06/09/2009 [facility] Throat Culture HAEMOPHILUS [address] [place] [address] Full INFL <SEE [phone] NOTE> Urine Culture & 03/31/2009 [facility] Urine Culture NG [address] [place] [address] Sensitivi [phone] Hemoglobinopathy 03/31/2009 [facility] Erythrocyte 4.17 Mill/uL 3.8 Evaluation Count 0-5 .10 Hemoglobin 13.2 g/dL 11.7-15.5 Hematocrit 38.7 % 35.0-45.0 MCV 92.7 FL 80.0-100.0 MCH 31.6 pg 27.0-33.0 RDW 15.3 % High 11.0-15.0 Hemoglobin A 96.8 % >96.0 Hemoglobin F 0.6 % <2.0 Hemoglobin A2 2.6 % 1.8-3.5 Hemoglobin S DNR Hemoglobin C DNR Hemoglobin E (HGB E) DNR Abnormal Hemoglobin 1 DNR Abnormal Hemoglobin 2 DNR Interpretation see note 19 Parvovirus B19 AB 03/31/2009 [facility] Parvovirus B19 AB (Igm) 0.1 index < 0.9 20 (Igg,M) Parvovirus B19 AB (Igg) 4.9 index High <0.9 Vad 03/31/2009 [facility] Vad Final NONREACTIVE Nonreactive [address] [place] [address] [phone] 1 TS 03/31/2009 [facility] [place] [address] Blood Type [phone] Antibody Screen NEGATIVE 1 03/31/2009 [facility] White Blood Count 8.4 CUMM 4.8-10.8 [place] [address] [phone] Red Cell Count 4.38 CUMM 4.2-5.4 Hemoglobin [...] Basophils 0 0-0.2 Syphilis IgG NON-REACTIVE Nonreactive 22 Hepatitis B Surface Ag NEGATIVE Negative Rubella Screen IMMUNE Immune Pap Test 05/27/2008 [facility] Cytology [address] [place] [address] <SEE NOTE> [phone] GC/ZHL On 05/27/2008 [facility] GC On Thin NEGATIVE Negative 24 [place] [address] Prep Vial [phone] CHL On Thin Prep Vial NEGATIVE Negative 25 GC/ZHL On Thin 06/11/2007 [facility] CHL On Thin NEGATIVE Negative 26 [place] [address] Prep Vial [phone] GC On Thin Prep Vial NEGATIVE Negative 27 Laboratory test 06/08/2007 [facility] Cytology [address] [place] [address] <SEE NOTE> [phone] Laboratory test 04/06/2007 [facility] Genital For FINAL: NEGATIVE [address] [place] [address] GRP B Strep <SEE NOTE> [phone] Only Laboratory test 02/19/2007 [facility] Urine Culture NG [address] [place] [address] Sensitivi [phone] 1 <5.0 Negative 5.0 - 25.0 Indeterminate [...] [address]: Jerry Bejarano MD Acct: [id number] Unit: [id number] AGE: 37 Location: [facility] Re09/04/17 SEX: F Status: REG REF SPEC: [id number] RAHUL: 09/04/17-[address] [facility] [address]: Jerry Bejarano MD REQ: [id number] RECD: 09/04/175066 STATUS: SOUT _ ORDERED: TP IMAGE ANALYS, HPV/Thin Prep COMMENTS: [id number] Negative for Intraepithelial lesion or Malignancy A. Ectocervical/Endocervical Specimen Adequacy: Satisfactory of evaluation Transformation zone component identified Patient Information: HPV: High risk HPV RNA testing regardless of pap results. Actual Specimen Date: 09/04/17 Last Menstrual Date: 07/29/17 Spec Date if unknown: 2013 Date Time Test Result Flag (u) Normal Range 09/04/17 4586 @ HPV RNA Negative Negative @ @ The high-risk HPV types detected by the assay include: 16, @ 18, 31, 33, 35, 39, 45, 51, 52, 56, 58, 59, 66, and 68. Signed by and Reported on: TAWANA Alcantara(ASCP) 6792 This Pap test was evaluated with the assistance of the KindermintPrep Test Imaging System. Due to cytologic findings at the banana grader microscope, comprehensive manual rescreening by a Cooking Teacher may be required. The Pap Smear is [...] years. END OF REPORT DEPARTMENT OF PATHOLOGY, [address] [place] [address] Nasim Landry M.D. Director [facility] # [id number] 8 RUN DATE: 06/16/14 [facility] LAB LIVE PAGE 1 RUN TIME: 1146 101 [facility], [place] [address] Specimen Inquiry Name: BREANA HUNTER : [address]: Calista Garcia MD Acct: [id number] Unit: [id number] AGE: 34 Location: [place] Re06/13/14 SEX: F Status: REG [facility] SPEC: [id number] RAHUL: 06/13/14-[address]: Calista Garcia MD REQ: [id number] RECD: 06/13/14-3480 STATUS: SOUT _ ORDERED: LEVEL IV FINAL [...] villi are identified. No parts are identified. Ammunition Storekeeper sections, two cassettes. Signed (signature on file) Nasim Landry MD 1146 END OF REPORT * ML=Testing performed at Main Lab DEPARTMENT OF PATHOLOGY, [address] [place] [address] Nasim Landry M.D. Director [facility] # [id number] 9 SDS 06/13/14 MISSED 10 <5.0 Negative [...] HAEMOPHILUS INFLUENZAE MOD^MODERATE^QTY NORMAL TRUNG MOD^MODERATE^QTY 18 FINAL: NO GROWTH DAY 2 (<1,000 CFU/mL) 19 Normal Phenotype. 20 Reference range: IgG and IgM Index <0.9 [...] of parvovirus B-19 infection in these patients. 21 FINAL INTERPRETATION: No HIV antibody is detected. . This information has been disclosed to you from confidential records which are protected by [place] State law. State law prohibits you from making further disclosure of this information without the specific written consent of the person to whom it pertains, or as otherwise permitted by law. Any unauthorized further disclosure in violation of state law may result in a fine or skilled nursing sentence or both. General authorization for the release of medical or other information is not, except in limited circumstances set forth in Part 63, Title 10, of [facility], sufficient authorization for further disclosure. Disclosure of confidential HIV information that occurs as the result of a general authorization for the release of medical or other information will be in violation of the state law and may result in a fine or a skilled nursing sentence. . 22 Warning: A positive result is not useful for establishing a diagnosis of syphilis. In most situations, such a result may reflect a prior treated infection; a negative result can exclude a diagnosis of syphilis except for incubating or early primary disease. 23 ---- RUN DATE: 07/09/08 [facility] NMI LIVE PAGE 1 RUN TIME: 1037 Specimen Inquiry RUN USER: INTERFACE -- Name: VENITA HUNTERELLE Status: REG REF Re05/25/08 Age/Sex: 28/F Unit#: [id number] Location: [facility] : [birth year] -- Specimen: [id number] SOUT Spec Date: 05/27/[address] [facility] [address]: Mireya Sargent mp FRAMER Spec Type: CYTOLOGY Received: 05/28/08-1250 Copies to: [...] to three years. -- DEPARTMENT OF PATHOLOGY, [address] [place] [address] [facility] Permit #[id number] Orin Borja M.D. Transformer Inspector Dir harkinsor -- -- RUN DATE: 07/09/08 [facility] NMI LIVE PAGE 2 RUN TIME: 1037 Specimen Inquiry RUN USER: INTERFACE -- Name: BREANA HUNTER Status: REG REF Re05/25/08 Age/Sex: 28/F Unit#: [id number] Location: [facility] : 78 -- -- CONTINUED -- Final Interpretation electronically signed by: Tawny ZAFAR([facility]) 05/28/08 160 3 -- -- DEPARTMENT OF PATHOLOGY, [address] [place] [address] [facility] Permit #[id number] Orin Borja M.D. Transformer Inspector Dir lamont -- 24 . A negative [...] mixup. . 28 ---- RUN DATE: 06/15/07 [facility] LIVE PAGE 1 RUN TIME: 813 Specimen Inquiry RUN USER: INTERFACE [id number] BREANA HUNTER <REG REF 06/08> ([id number]) Kelvin COOK CNM -- Specimen: [id number] ELIAN Spec Date: 06/08/[address]: Kelvin Cash CNM Spec Type: CYTOLOGY Received: 06/14/07-1532 Copies to: SOURCE ECTOCERVICAL/ENDOCERVICAL Thin Prep with Reflex HPV Test PATIENT INFORMATION ACTUAL COLLECTION DATE: 06/08/07 ADEQUACY OF SPECIMEN Satisfactory for evaluation * Transformation zone component identified * DIAGNOSIS NEGATIVE FOR INTRAEPITHELIAL LESION OR MALIGNANCY * This Pap test was evaluated with the assistance of the KindermintPrep Pap Test Imaging System. The Pap Smear [...] 081 4 -- -- DEPARTMENT OF PATHOLOGY, [address] [place] [address] [facility] Permit #[id number] Nasim Landry M.D. Director of Laboratories -- 29 FINAL: NEGATIVE FOR GROUP B STREPTOCOCCUS 30 FINAL: NO GROWTH DAY 2 (<1,000 CFU/mL) Procedures Date Code Description Status 08/07/2018 09451 OB Ultrasound First Trimester Completed 04/25/2018 40976 Echography Transvaginal Completed 04/19/2018 56696 OB Ultrasound First Trimester Completed 01/05/2018 12204 Echography Transvaginal Completed 08/15/2014 61649 Insert Intrauterine Device Completed 06/13/2014 79056 Incomplete, Completed Surgically Completed 06/03/2014 66922 OB Ultrasound First Trimester Completed 01/21/2010 06641 Insert Intrauterine Device Completed 10/29/2009 24373 Obstetric Care Routine Completed 08/29/2009 99781 Non-Stress Test Completed 06/09/2009 54890 Echography Uterus Complete Completed 04/15/2009 10420 Nuchal Translucency Ultrasound /First Gestation Completed 05/07/2007 34511 Obstetric Care Routine Completed 03/19/2007 94631 Echography Uterus Complete Completed 03/19/2007 96862 Echography Uterus Complete Completed Encounters Type Date Location Provider Dx Diagnosis Office Visit 04/25/2018 [facility] Calista Garcia, O03.9 Complete or unsp 8:45a spontaneous without complication Office Visit 04/19/2018 [facility] Anat Clayton O36.80x0 w 2:40p PEYTON Chaudhry inconclusive viability, unsp Office Visit 01/05/2018 [facility] Donn Vega MD O36.80x0 w 3:15p inconclusive viability, unsp Office Visit 09/04/2017 [facility] Jerry Bejarano, Z01.411 Encntr for railroad car checker exam 10:40a M.DTeodora (general) (routine) w abnormal findings D48.62 Neoplasm of uncertain behavior of left breast Z30.432 Encounter for removal of intrauterine contraceptive device Office Visit 09/16/2014 10:30a [facility] Yvrose Cruz V25.42 Contraceptive [employer] Intrauterine Device Surveillance Office Visit 08/13/2014 11:30a [facility] Jose V25.09 Contraceptive MD Calista Management Other V45.89 Postsurgical Status Other Office Visit 06/11/2014 2:00p [facility] Calista Garcia, V72.83 Examination MD Preoperative Other Spec 632 Missed Office Visit 06/03/2014 9:00a [facility] Joy Hawthorne, 640.03 Threatened CNM Antepartum Condition Or Complication 640.00 Threatened Episode Of Care Unspec Or N/A Office Visit 03/04/2010 3:20p [facility] Jerry Leach V25.42 Contraceptive Orin Bejarano Intrauterine Device Surveillance Office Visit 01/04/2010 1:40p [facility] Jerry Leach V25.1 Intrauterine Orin Bejarano Contraceptive Device Insertion V25.49 Contraceptive Other Method Surveillance Office Visit 10/13/2009 8:00a [facility] Mireya Sinha V77.1 Screening Diabetes ANP-C Mellitus V22.1 Supervison Of Normal Other Office Visit 08/29/2009 1:54p Delivery Miranda Muñoz 644.13 Labor Threatened [employer]ING [employer]SEMBLER, CNM Other Antepartum Cond Or Compl Office Visit 06/02/2008 9:00a [facility] Jerry Leach V25.49 Contraceptive Other GelOrin monryo Method Surveillance Office Visit 05/27/2008 1:20p [facility] Mireya Sinha V72.31 Routine Form Worker ANP-C Examination V76.2 Screening Malignant Neoplasm Cervix V41.7 Sexual Function Problem V25.49 Contraceptive Other Method Surveillance Plan of Treatment 04/25/2018 - Calista Garcia MDO03.9 Complete or unspecified spontaneous without complicComments:Will check hcg and follow to <5. Then plan to start OCPs. Will call pt tomorrow with results. Needs note to go back to work. 3mo f/u visit.
[2018-08-19] MEDS ORDERED: NS 0.9% 1000 ML** 1,000 ML IV ONE (09:29)
[2018-08-19] MEDS ORDERED: Ondansetron INJ* 2 MG/ML VIAL IV ONE (09:29)
[2018-08-19] MEDS ORDERED: Morphine 4 MG/ML VIAL (1 ml) 4 MG/ML VIAL IV ONE ×3 (09:29→11:12)
[2018-08-19 10:00] LABS: ABS Basophils 0.1 10^3/ul (0-0.2); ABS Eosinophils 0.2 10^3/ul (0-0.6); ABS Monocytes 0.6 10^3/ul (0-0.8); ABS Neutrophils 5.6 10^3/ul (1.5-7.7); ABS Nucleated RBC 0 10^3/ul; Hematocrit 41 % (33-41); Hemoglobin 13.8 g/dL (12.0-16.0); Lymphocyte % 23.4 %; Mean Corpuscular HGB Conc 33 g/dL (31-36); Mean Corpuscular Hemoglobin 30 pg (27-31); Mean Corpuscular Volume 88 fL (80-97); Mean Platelet Volume 8.3 fL (7.4-10.4); Nucleated Red Blood Cells % 0; Platelet Count 354 10^3/uL (150-450); Red Blood Count 4.68 10^6 /uL (3.70-4.87); Red Cell Distribution Width 14 % (10.5-15); White Blood Count 8.4 10^3/uL (3.5-10.8)
[2018-08-19 10:05] LABS: INR 0.95 (0.82-1.09)
[2018-08-19 10:12] LABS: Albumin 4.2 g/dL (3.2-5.2); Albumin/Globulin Ratio 1.4 (1-3); BUN/Creatinine Ratio 16.2 (8-20); C Reactive Protein 22.48 mg/L (<8.01); Calcium 9.3 mg/dL (8.6-10.3); EGFR African American 105.7 (>60); EGFR Non-African American 87.4 (>60); Potassium 3.9 mmol/L (3.5-5.0); Total Bilirubin 0.3 mg/dL (0.2-1.0); Total Protein 7.2 g/dL (6.4-8.9)
[2018-08-19 10:19] LABS: HCG Pregnancy 41.06 mIU/mL
[2018-08-19] MEDS ORDERED: Iohexol 300* (CONTRAST) 10 ML SDV IV ONE (10:47)
[2018-08-19 11:30] LABS: Urine Appearance Clear; Urine Bacteria 1+ (Absent); Urine Bilirubin Negative (Negative); Urine Blood 2+ (Negative); Urine Color Straw; Urine Glucose Negative (Negative); Urine Ketones Negative (Negative); Urine Nitrite Negative (Negative); Urine Protein Negative (Negative); Urine Red Blood Cell 1+(3-5/hpf) (Absent); Urine Specific Gravity 1.004 (1.010-1.030); Urine Urobilinogen Negative (Negative); Urine White Blood Cell 2+(11-20/hpf) (Absent)
[2018-08-19 12:33] VITALS: BP 146/90
--- NOTE | 2018-08-19 13:15 | ED ---
Abdominal Pain/Female - HPI Summary HPI Summary: Patient is a 38-year-old female 10 days status post D&C for missed presenting to the ED with suprapubic tenderness, lower abdominal pain, intermittently worse to the left side which has been present times several days. She states she has had an "aching" pain since the D&C, however now has had suprapubic tenderness which is different than her aching pain. She endorses back pain which started this morning. Denies any vaginal discharge, malodorous discharge, however continues to endorse vaginal bleeding. She endorses vaginal bleeding which has been less and less since the D&C. D&C performed by Dr. Garcia. She endorses urinary frequency, but denies any burning or urgency. She denies any fevers, sweats, chills. She denies any CP, SOB, other abdominal pain, vaginal pain. - History of Current Complaint Chief Complaint: EDFlankPain Stated Complaint: LEFT FLANK PAIN/LOWER ABD PAIN PER PT Time Seen by Provider: 08/19/18 09:18 Hx Obtained From: Patient Hx Last Menstrual Period: d&c a week ago ?: No Onset/Duration: Sudden Onset Timing: Constant Severity Initially: Moderate Severity Currently: Moderate Pain Intensity: 4 Pain Scale Used: 0-10 Numeric Location: Suprapubic Radiates: Yes Radiates to: Back Character: Cramping Aggravating Factor(s): Nothing Alleviating Factor(s): Nothing Associated Signs and Symptoms: Positive: Urinary Symptoms. Negative: Back Pain , Constipation, Blood in Stool, Nausea, Vomiting, Diarrhea - Risk Factors Ectopic Risk Factor: Negative Ovarian Torsion Risk Factor: Negative Allergies/Adverse Reactions: Allergies Allergy/AdvReac Type Severity Reaction Status Date / Time clindamycin Allergy Severe Rash Verified 08/19/18 09:07 latex Allergy Severe Rash Verified 08/19/18 09:07 doxycycline Allergy Mild Rash Verified 08/19/18 09:07 Penicillins Allergy Unknown Unknown Verified 08/19/18 09:07 Reaction Details kiwi Allergy Rash Verified 08/19/18 09:16 PMH/Surg Hx/FS Hx/Imm Hx Previously Healthy: Yes Endocrine/Hematology History: Denies: Hx Diabetes Cardiovascular History: Denies: Hx Congestive Heart Failure, Hx Hypertension, Other Cardiovascular Problems/Disorders Respiratory History: Reports: Hx Asthma - no meds currrently, but has Qvar, Hx Sleep Apnea Denies: Other Respiratory Problems/Disorders GI History: Reports: Hx Gastroesophageal Reflux Disease - resolved after surgery , Hx Hiatal Hernia - had repair Denies: Other GI Disorders History: Reports: Hx Kidney Infection - Hx OF, MANY YEARS AGO Denies: Hx Renal Disease, Other Problems/Disorders Musculoskeletal History: Reports: Other Musculoskeletal History - has chronic back pain, states due to breasts being large Sensory History: Reports: Hx Contacts or Glasses - GLASSES or contacts- instructed to wear glasses day of surgery Denies: Hx Hearing Aid Opthamlomology History: Reports: Hx Contacts or Glasses - GLASSES or contacts- instructed to wear glasses day of surgery Neurological History: Reports: Hx Headaches, Hx Migraine - not recent Denies: Other Neuro Impairments/Disorders Psychiatric History: Reports: Hx Anxiety, Hx Depression - on bupropion - Cancer History Hx Chemotherapy: No - Surgical History Surgery Procedure, Year, and Place: D&C 2006, 2014, 08/10/18. Appendectomy 2014. 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 , Hx Shingles, Traveled Outside the [place] in Last 30 Days [facility] Denies: Hx Clostridium Difficile, Hx Hepatitis, Hx Human Immunodeficiency Virus (HIV), Hx Tuberculosis, Hx Known/Suspected VRE, Hx Known/Suspected VRSA, History Other Infectious Disease - Family History Known Family History: Positive: None, Diabetes - Social History Occupation: Unemployed Lives: Alone Alcohol Use: None Hx Substance Use: No Substance Use Type: Reports: None Hx Tobacco Use: No Smoking Status (MU): Never Smoked Tobacco Have You Smoked in the Last Year: No Review of Systems Negative: Fever, Chills, Fatigue, Skin Diaphoresis Negative: Palpitations, Chest Pain Negative: Shortness Of Breath, Cough Positive: Abdominal Pain. Negative: Vomiting, Diarrhea, Nausea Positive: see HPI, burning, dysuria, frequency, flank pain, pain. Negative: hematuria, incontinence, urgency Musculoskeletal: Negative Negative: Rash, Bruising Neurological: Negative All Other Systems Reviewed And Are Negative: Yes Physical Exam Triage Information Reviewed: Yes Vital Signs On Initial Exam: Initial Vitals Temp Pulse Resp BP Pulse Ox 97.6 F 80 18 155/97 100 08/19/18 09:08 08/19/18 09:08 08/19/18 09:08 08/19/18 09:08 08/19/18 09:08 Vital Signs Reviewed: Yes Appearance: Positive: Well-Appearing, Well-Nourished Skin: Positive: Skin Color Reflects Adequate Perfusion Head/Face: Positive: Normal Head/Face Inspection Eyes: Positive: EOMI, Conjunctiva Clear Neck: Positive: Supple, No Lymphadenopathy Respiratory/Lung Sounds: Positive: Clear to Auscultation Cardiovascular: Positive: RRR, Pulses are Symmetrical in both Upper and Lower Extremities Musculoskeletal: Positive: Strength/ROM Intact Neurological: Positive: Speech Normal Psychiatric: Positive: Affect/Mood Appropriate Diagnostics - Vital Signs Vital Signs Temp Pulse Resp BP Pulse Ox 08/19/18 12:32 98.2 F 75 16 146/90 99 08/19/18 11:21 83 145/86 100 08/19/18 11:18 83 18 162/76 100 08/19/18 10:20 77 149/84 100 08/19/18 10:00 77 100 08/19/18 09:50 77 150/77 98 08/19/18 09:38 18 08/19/18 09:23 99 100 08/19/18 09:08 97.6 F 80 18 155/97 100 - Laboratory Lab Results: Lab Results 08/19/18 08/19/18 08/19/18 Range/Units 09:36 09:36 09:36 WBC 8.4 (3.5-10.8) 10^3/uL RBC 4.68 (3.70-4.87) 10^6 /uL Hgb 13.8 (12.0-16.0) g/dL Hct 41 (33-41) % MCV 88 (80-97) fL MCH 30 (27-31) pg MCHC 33 (31-36) g/dL RDW 14 (10.5-15) % Plt Count 354 (150-450) 10^3/uL MPV 8.3 (7.4-10.4) fL Neut % (Auto) 66.7 % Lymph % (Auto) 23.4 % Josephine % (Auto) 7.2 % Eos % (Auto) 2.0 % Baso % (Auto) 0.7 % Absolute Neuts (auto) 5.6 (1.5-7.7) 10^3/ul Absolute Lymphs (auto) 2.0 (1.0-4.8) 10^3/ul Absolute Monos (auto) 0.6 (0-0.8) 10^3/ul Absolute Eos (auto) 0.2 (0-0.6) 10^3/ul Absolute Basos (auto) 0.1 (0-0.2) 10^3/ul Absolute Nucleated RBC 0 10^3/ul Nucleated RBC % 0 INR (Anticoag Therapy) 0.95 (0.82-1.09) Sodium 137 (135-145) mmol/L Potassium 3.9 (3.5-5.0) mmol/L Chloride 103 (101-111) mmol/L Carbon Dioxide 25 (22-32) mmol/L Anion Gap 9 (2-11) mmol/L BUN 12 (6-24) mg/dL Creatinine 0.74 (0.51-0.95) mg/dL Est GFR ( Amer) 105.7 (>60) Est GFR (Non-Af Amer) 87.4 (>60) BUN/Creatinine Ratio 16.2 (8-20) Glucose 91 (70-100) mg/dL Lactic Acid (0.5-2.0) mmol/L Calcium 9.3 (8.6-10.3) mg/dL Total Bilirubin 0.30 (0.2-1.0) mg/dL AST 16 (13-39) U/L ALT 23 (7-52) U/L Alkaline Phosphatase 98 (34-104) U/L C-Reactive Protein 22.48 H (<8.01) mg/L Total Protein 7.2 (6.4-8.9) g/dL Albumin 4.2 (3.2-5.2) g/dL Globulin 3.0 (2-4) g/dL Albumin/Globulin Ratio 1.4 (1-3) Lipase 16 (11.0-82.0) U/L Beta HCG, Quant 41.06 mIU/mL Urine Color Urine Appearance Urine pH (5-9) Ur Specific [place] (1.010-1.030) Urine Protein (Negative) Urine Ketones (Negative) Urine Blood (Negative) Urine Nitrate (Negative) Urine Bilirubin (Negative) Urine Urobilinogen (Negative) Ur Leukocyte Esterase (Negative) Urine WBC (Auto) (Absent) Urine RBC (Auto) (Absent) Urine Bacteria (Absent) Urine Glucose (Negative) 08/19/18 08/19/18 Range/Units 09:36 11:20 WBC (3.5-10.8) 10^3/uL RBC (3.70-4.87) 10^6 /uL Hgb (12.0-16.0) g/dL Hct (33-41) % MCV (80-97) fL MCH (27-31) pg MCHC (31-36) g/dL RDW (10.5-15) % Plt Count (150-450) 10^3/uL MPV (7.4-10.4) fL Neut % (Auto) % Lymph % (Auto) % Josephine % (Auto) % Eos % (Auto) % Baso % (Auto) % Absolute Neuts (auto) (1.5-7.7) 10^3/ul Absolute Lymphs (auto) (1.0-4.8) 10^3/ul Absolute Monos (auto) (0-0.8) 10^3/ul Absolute Eos (auto) (0-0.6) 10^3/ul Absolute Basos (auto) (0-0.2) 10^3/ul Absolute Nucleated RBC 10^3/ul Nucleated RBC % INR (Anticoag Therapy) (0.82-1.09) Sodium (135-145) mmol/L Potassium (3.5-5.0) mmol/L Chloride (101-111) mmol/L Carbon Dioxide (22-32) mmol/L Anion Gap (2-11) mmol/L BUN (6-24) mg/dL Creatinine (0.51-0.95) mg/dL Est GFR ( Amer) (>60) Est GFR (Non-Af Amer) (>60) BUN/Creatinine Ratio (8-20) Glucose (70-100) mg/dL Lactic Acid 1.1 (0.5-2.0) mmol/L Calcium (8.6-10.3) mg/dL Total Bilirubin (0.2-1.0) mg/dL AST (13-39) U/L ALT (7-52) U/L Alkaline Phosphatase (34-104) U/L C-Reactive Protein (<8.01) mg/L Total Protein (6.4-8.9) g/dL Albumin (3.2-5.2) g/dL Globulin (2-4) g/dL Albumin/Globulin Ratio (1-3) Lipase (11.0-82.0) U/L Beta HCG, Quant mIU/mL Urine Color Straw Urine Appearance Clear Urine pH 6.0 (5-9) Ur Specific [place] 1.004 L (1.010-1.030) Urine Protein Negative (Negative) Urine Ketones Negative (Negative) Urine Blood 2+ A (Negative) Urine Nitrate Negative (Negative) Urine Bilirubin Negative (Negative) Urine Urobilinogen Negative (Negative) Ur Leukocyte Esterase Trace A (Negative) Urine WBC (Auto) 2+(11-20/hpf) A (Absent) Urine RBC (Auto) 1+(3-5/hpf) A (Absent) Urine Bacteria 1+ A (Absent) Urine Glucose Negative (Negative) Result Diagrams: 08/19/18 09:36 08/19/18 09:36 Lab Statement: Any lab studies that have been ordered have been reviewed, and results considered in the medical decision making process. Abdominal Pain Fem Course/Dx - Course Course Of Treatment: Patient is evaluated for suprapubic tenderness, which is been present times several days, now radiating to the back. She denies any worsening vaginal bleeding, vaginal discharge or vaginal pain. Denies any hematuria, nausea, vomiting. Denies any hematuria Denies any fevers, sweats, chills. She denies any other symptoms at this time. Labs obtained which are WNL. UA shows UTI. On physical examination, patient has suprapubic tenderness and mild CVA tenderness bilaterally. She is denying any vaginal discharge, malodorous discharge or worsening vaginal bleeding since the procedure, I believe this is a UTI and does not appear to be PID or pyelonephritis at this time unless these are atypical symptoms. Also, does not appear to be a complication of her D & C. CT abdomen/pelvis obtained which shows a cystitis with no other acute complications. No perforation. However, return precautions are given and she will call Dr. Diaz's office tomorrow morning. She is given Bactrim, Pyridium and tramadol for pain not well controlled with the Pyridium. She is okay for discharge at this time and voices no concerns. - Diagnoses Differential Diagnosis: Positive: Urinary Tract Infection, Other - D and C complications, UTI, pyelonephritis, interstitial cystitis Provider Diagnoses: UTI (urinary tract infection), Abdominal pain, Back pain Discharge - Sign-Out/Discharge Documenting (check all that apply): Patient Departure Patient Received Moderate/Deep Sedation with Procedure: No - Discharge Plan Condition: Stable Disposition: HOME Prescriptions: Phenazopyridine TAB* [Pyridium 100 mg TAB*] 100 mg PO TID #12 tab Sulfamethox/Trimethoprim DS* [Bactrim DS 800/160 TAB*] 1 tab PO BID #10 tab traMADol TAB* [Ultram*] 50 mg PO Q8H PRN #6 tab MDD 3 PRN Reason: Pain Patient Education Materials: Urinary Tract Infection in Women (ED) Forms: *Work Release Referrals: Vito Richards MD [Primary Care Provider] - Calista Garcia MD [Medical Doctor] - Additional Instructions: Please call Dr. Garcia's office in the morning Pyridium up to 3 times daily as needed for any bladder spasms or pain Bactrim twice daily 5 days, he will start this medication immediately this afternoon and your second dose will be this evening Tramadol up to three times daily as needed for pain not well controlled with Pyridium Moist heat to the area If you develop any fevers, sweats, chills, worsening vaginal bleeding, return to the ED immediately - Billing Disposition and Condition Condition: STABLE Disposition: Home
--- NOTE | 2018-08-22 11:18 | PN ---
Progress Note - Progress Note Date of Service: 08/19/18 Note: Pt. started on Bactrim for UTI 08/19. Culture today is growing >100k e. coli that is resistant to Bactrim. Pt. with numerous drug allergies. Will switch to cipro based on allergies and culture. I called and informed pt. of change today at 1115. To dc bactrim and start cipro today. Pt. understands and agrees with plan. <Farhan Cruz - Last Filed: 08/22/18 11:16> Attestation Statement Provider Attestation: I was available for consult. This patient was seen by the [facility]. The patient was not presented to, seen by, or examined by me. -Jayne <Altagracia Lima - Last Filed: 08/22/18 13:12>
== END 2018-08-19 12:32 | disposition home or self-care (01) ==
LOC: ED 09:05
DX: N99.89 Other postprocedural complications and disorders of genitourinary system (principal); N39.0 Urinary tract infection, site not specified; J45.909 Unspecified asthma, uncomplicated; K21.9 Gastro-esophageal reflux disease without esophagitis; Z88.0 Allergy status to penicillin; Z88.3 Allergy status to other anti-infective agents; Z88.8 Allergy status to other drugs, medicaments and biological substances; Z91.040 Latex allergy status
CPT/HCPCS: 36415; 74177; 80053; 81003; 81015; 83605; 83690; 84702; 85025; 85610; 86140; 87077; 87086; 87186; 96361; 96374; 96375; 96376; 99283; J2270; J2405; Q9967

== ENCOUNTER 2019-01-22 17:58 | Emergency (ER) | payer BC ==
[2019-01-22 19:05] LABS: Urine Appearance Cloudy; Urine Bacteria Absent (Absent); Urine Bilirubin Negative (Negative); Urine Blood 1+ (Negative); Urine Color Yellow; Urine Glucose Negative (Negative); Urine Ketones Negative (Negative); Urine Nitrite Negative (Negative); Urine Protein Negative (Negative); Urine Red Blood Cell 1+(3-5/hpf) (Absent); Urine Specific Gravity 1.018 (1.010-1.030); Urine Squamous Epithelial Cell Present (Absent); Urine Urobilinogen Negative (Negative); Urine White Blood Cell Trace(0-5/hpf) (Absent)
[2019-01-22 19:26] LABS: ABS Basophils 0.1 10^3/ul (0-0.2); ABS Eosinophils 0.2 10^3/ul (0-0.6); ABS Lymphocytes 1.9 10^3/ul (1.0-4.8); ABS Monocytes 0.7 10^3/ul (0-0.8); ABS Neutrophils 3.5 10^3/ul (1.5-7.7); Eosinophil % 2.6 %; Hematocrit 40 % (35-47); Hemoglobin 13.3 g/dL (12.0-16.0); Lymphocyte % 30.7 %; Mean Corpuscular HGB Conc 34 g/dL (31-36); Mean Corpuscular Hemoglobin 30 pg (27-31); Mean Corpuscular Volume 88 fL (80-97); Mean Platelet Volume 8.2 fL (7.4-10.4); Platelet Count 338 10^3/uL (150-450); Red Blood Count 4.48 10^6 /uL (3.70-4.87); Red Cell Distribution Width 13 % (10-15); White Blood Count 6.3 10^3/uL (3.5-10.8)
[2019-01-22 19:44] LABS: Albumin 4.1 g/dL (3.2-5.2); Albumin/Globulin Ratio 1.5 (1-3); BUN/Creatinine Ratio 10.9 (8-20); C Reactive Protein 1.35 mg/L (<8.01); Calcium 8.7 mg/dL (8.6-10.3); EGFR African American 73.8 (>60); Globulin 2.7 g/dL (2-4); Potassium 3.7 mmol/L (3.5-5.0); Total Bilirubin 0.3 mg/dL (0.2-1.0); Total Protein 6.8 g/dL (6.4-8.9)
[2019-01-22 19:50] LABS: HCG Pregnancy 474.53 mIU/mL
[2019-01-22] MEDS: NS 0.9% 1000 ML** 1,000 ML IV ONE (19:58)
--- NOTE | 2019-01-22 21:56 | ED ---
GI/ HPI - HPI Summary HPI Summary: Patient is a 38 y/o A4 F who believes she is approximately 6 weeks who presents to [facility] with complaints of right-sided abdominal cramping without vaginal bleeding for two weeks. , Elias, is present. She states that [facility] for possible . Patient reports that US was done this day; two sacs were noted, one without heartbeat noted, the other indeterminate. She states that she was tested for STIs and was negative. Her HCG was done, and she went for repeat levels 01/19/2019 and 01/22/2019. Patient reports that she has had pain for two weeks. However, pain worsened today and she was advised to come to [facility] due to concerns of possible ectopic . She notes previous miscarriages at 3, 2, 2, and 4 months of . She denies Hx of ovarian surgeries. Patient took 1000 mg Tylenol today, 01/22/19, a few minutes prior to arrival with some relief in pain. First day of LNMP was 12/15/18. Allergies and medications reviewed. She takes multivitamins daily. PSHx of appendectomy and hiatal hernia repair noted. She is adopted and FMHx is unknown. On triage, pain is rated 5/10, nothing is noted to aggravate/alleviate Sx. Allergies Allergy/AdvReac Type Severity Reaction Status Date / Time clindamycin Allergy Severe Rash Verified 08/19/18 09:07 latex Allergy Severe Rash Verified 08/19/18 09:07 doxycycline Allergy Mild Rash Verified 08/19/18 09:07 Penicillins Allergy Unknown Unknown Verified 08/19/18 09:07 Reaction Details kiwi Allergy Rash Verified 08/19/18 09:16 - History of Current Complaint Chief Complaint: EDOBProblems Time Seen by Provider: 01/22/19 18:06 Stated Complaint: POSS ECTOPIC PER PT Hx Obtained From: Patient Hx Last Menstrual Period: 12/15/18 Onset/Duration: Started Weeks Ago - 2, Still Present, Worse Since Timing: Constant, Lasting Weeks - 2 Severity: Moderate Current Severity: Moderate Number of Pads per Day: 0 - No vag bleeding Pain Intensity: 5 Location of Pain: RLQ Pain Characteristics: Cramping Associated Signs and Symptoms: Positive: Negative Additional Signs & Symptoms: Negative: Vaginal Bleeding Aggravating Factor(s): Nothing Alleviating Factor(s): Nothing - Allergy/Home Medications Allergies/Adverse Reactions: Allergies Allergy/AdvReac Type Severity Reaction Status Date / Time clindamycin Allergy Severe Rash Verified 08/19/18 09:07 latex Allergy Severe Rash Verified 08/19/18 09:07 doxycycline Allergy Mild Rash Verified 08/19/18 09:07 Penicillins Allergy Unknown Unknown Verified 08/19/18 09:07 Reaction Details kiwi Allergy Rash Verified 08/19/18 09:16 PMH/Surg Hx/FS Hx/Imm Hx Endocrine/Hematology History: Denies: Hx Diabetes Cardiovascular History: Denies: Hx Congestive Heart Failure, Hx Hypertension, Other Cardiovascular Problems/Disorders Respiratory History: Reports: Hx Asthma Denies: Other Respiratory Problems/Disorders GI History: Reports: Hx Hiatal Hernia - had repair Denies: Other GI Disorders History: Denies: Hx Renal Disease, Other Problems/Disorders Musculoskeletal History: Reports: Hx Back Problems Sensory History: Reports: Hx Contacts or Glasses - GLASSES or contacts- instructed to wear glasses day of surgery Denies: Hx Hearing Aid Opthamlomology History: Reports: Hx Contacts or Glasses - GLASSES or contacts- instructed to wear glasses day of surgery Neurological History: Reports: Hx Headaches, Hx Migraine Denies: Other Neuro Impairments/Disorders Psychiatric History: Reports: Hx Anxiety, Hx Depression - Cancer History Hx Chemotherapy: No - Surgical History Surgery Procedure, Year, and Place: D&C 2006, 2014, 08/10/18. Appendectomy 2014. 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 , Hx Shingles Denies: Hx Clostridium Difficile, Hx Hepatitis, Hx Human Immunodeficiency Virus (HIV), Hx Tuberculosis, Hx Known/Suspected VRE, Hx Known/Suspected VRSA, History Other Infectious Disease - Family History Known Family History: Positive: Unknown - patient is adopted - Social History Lives: With Family Alcohol Use: None Hx Substance Use: No Substance Use Type: Reports: None Hx Tobacco Use: No Smoking Status (MU): Never Smoked Tobacco Have You Smoked in the Last Year: No Review of Systems Constitutional: Negative Cardiovascular: Negative Respiratory: Negative Positive: Abdominal Pain - cramping Genitourinary: Other - negative - vaginal bleeding Skin: Negative Neurological: Negative Psychological: Normal All Other Systems Reviewed And Are Negative: Yes Physical Exam - Summary Physical Exam Summary: Appearance: well-appearing, moderate pain distress due to RLQ abdominal pain, well-nourished Skin: Warm, color reflects adequate perfusion, dry Head: Normal Head/Face inspection, atraumatic Eyes: Conjunctiva clear ENT: Normal inspection Neck: Supple, no nodes, no JVD Respiratory: Lungs clear, normal breath sounds, no respiratory distress Cardio: RRR, No murmur, pulses normal, brisk capillary refill Abdomen: Soft, tenderness of RLQ, no guarding, no rebound, no masses, uterine fundus just palpable about pelvic brim. Bowel sounds: Present Musculoskeletal: Strength Intact/ROM intact, no calf tenderness, no edema. Psychological: Normal Neuro: Alert, muscle tone normal, no focal deficit Triage Information Reviewed: Yes Vital Signs On Initial Exam: Initial Vitals Temp Pulse Resp BP Pulse Ox 98.0 F 88 18 152/89 100 01/22/19 18:01 01/22/19 18:01 01/22/19 18:01 01/22/19 18:01 01/22/19 18:01 Vital Signs Reviewed: Yes Procedures - Sedation Patient Received Moderate/Deep Sedation with Procedure: No Diagnostics - Vital Signs Vital Signs Temp Pulse Resp BP Pulse Ox 01/22/19 18:01 98.0 F 88 18 152/89 100 - Laboratory Lab Results: Lab Results 01/22/19 01/22/19 01/22/19 Range/Units 18:50 19:15 19:15 WBC 6.3 (3.5-10.8) 10^3/uL RBC 4.48 (3.70-4.87) 10^6 /uL Hgb 13.3 (12.0-16.0) g/dL Hct 40 (35-47) % MCV 88 (80-97) fL MCH 30 (27-31) pg MCHC 34 (31-36) g/dL RDW 13 (10-15) % Plt Count 338 (150-450) 10^3/uL MPV 8.2 (7.4-10.4) fL Neut % (Auto) 55.2 % Lymph % (Auto) 30.7 % Cla[place]orne % (Auto) 10.5 % Eos % (Auto) 2.6 % Baso % (Auto) 1.0 % Absolute Neuts (auto) 3.5 (1.5-7.7) 10^3/ul Absolute Lymphs (auto) 1.9 (1.0-4.8) 10^3/ul Absolute Monos (auto) 0.7 (0-0.8) 10^3/ul Absolute Eos (auto) 0.2 (0-0.6) 10^3/ul Absolute Basos (auto) 0.1 (0-0.2) 10^3/ul Absolute Nucleated RBC 0.0 10^3/ul Nucleated RBC % 0.0 Sodium 139 (135-145) mmol/L Potassium 3.7 (3.5-5.0) mmol/L Chloride 108 (101-111) mmol/L Carbon Dioxide 26 (22-32) mmol/L Anion Gap 5 (2-11) mmol/L BUN 11 (6-24) mg/dL Creatinine 1.01 H (0.51-0.95) mg/dL Est GFR ( Amer) 73.8 (>60) Est GFR (Non-Af Amer) 61.0 (>60) BUN/Creatinine Ratio 10.9 (8-20) Glucose 92 (70-100) mg/dL Lactic Acid (0.5-2.0) mmol/L Calcium 8.7 (8.6-10.3) mg/dL Total Bilirubin 0.30 (0.2-1.0) mg/dL AST 19 (13-39) U/L ALT 20 (7-52) U/L Alkaline Phosphatase 61 (34-104) U/L C-Reactive Protein 1.35 (<8.01) mg/L Total Protein 6.8 (6.4-8.9) g/dL Albumin 4.1 (3.2-5.2) g/dL Globulin 2.7 (2-4) g/dL Albumin/Globulin Ratio 1.5 (1-3) Beta HCG, Quant 474.53 mIU/mL Urine Color Yellow Urine Appearance Cloudy Urine pH 7.0 (5-9) Ur Specific [place] 1.018 (1.010-1.030) Urine Protein Negative (Negative) Urine Ketones Negative (Negative) Urine Blood 1+ A (Negative) Urine Nitrate Negative (Negative) Urine Bilirubin Negative (Negative) Urine Urobilinogen Negative (Negative) Ur Leukocyte Esterase 2+ A (Negative) Urine WBC (Auto) Trace(0-5/hpf) (Absent) Urine RBC (Auto) 1+(3-5/hpf) A (Absent) Ur Squamous Epith Cells Present A (Absent) Urine Bacteria Absent (Absent) Urine Glucose Negative (Negative) Blood Type 01/22/19 01/22/19 Range/Units 19:15 19:15 WBC (3.5-10.8) 10^3/uL RBC (3.70-4.87) 10^6 /uL Hgb (12.0-16.0) g/dL Hct (35-47) % MCV (80-97) fL MCH (27-31) pg MCHC (31-36) g/dL RDW (10-15) % Plt Count (150-450) 10^3/uL MPV (7.4-10.4) fL Neut % (Auto) % Lymph % (Auto) % Cla[place]orne % (Auto) % Eos % (Auto) % Baso % (Auto) % Absolute Neuts (auto) (1.5-7.7) 10^3/ul Absolute Lymphs (auto) (1.0-4.8) 10^3/ul Absolute Monos (auto) (0-0.8) 10^3/ul Absolute Eos (auto) (0-0.6) 10^3/ul Absolute Basos (auto) (0-0.2) 10^3/ul Absolute Nucleated RBC 10^3/ul Nucleated RBC % Sodium (135-145) mmol/L Potassium (3.5-5.0) mmol/L Chloride (101-111) mmol/L Carbon Dioxide (22-32) mmol/L Anion Gap (2-11) mmol/L BUN (6-24) mg/dL Creatinine (0.51-0.95) mg/dL Est GFR ( Amer) (>60) Est GFR (Non-Af Amer) (>60) BUN/Creatinine Ratio (8-20) Glucose (70-100) mg/dL Lactic Acid 1.0 (0.5-2.0) mmol/L Calcium (8.6-10.3) mg/dL Total Bilirubin (0.2-1.0) mg/dL AST (13-39) U/L ALT (7-52) U/L Alkaline Phosphatase (34-104) U/L C-Reactive Protein (<8.01) mg/L Total Protein (6.4-8.9) g/dL Albumin (3.2-5.2) g/dL Globulin (2-4) g/dL Albumin/Globulin Ratio (1-3) Beta HCG, Quant mIU/mL Urine Color Urine Appearance Urine pH (5-9) Ur Specific [place] (1.010-1.030) Urine Protein (Negative) Urine Ketones (Negative) Urine Blood (Negative) Urine Nitrate (Negative) Urine Bilirubin (Negative) Urine Urobilinogen (Negative) Ur Leukocyte Esterase (Negative) Urine WBC (Auto) (Absent) Urine RBC (Auto) (Absent) Ur Squamous Epith Cells (Absent) Urine Bacteria (Absent) Urine Glucose (Negative) Blood Type O Positive Result Diagrams: 01/22/19 19:15 01/22/19 19:15 Lab Statement: Any lab studies that have been ordered have been reviewed, and results considered in the medical decision making process. - Ultrasound TRANSVAGINAL US Ultrasound Interpretation Completed By: Radiologist Summary of Ultrasound Findings: IMPRESSION: 1. Intrauterine of unknown viability, possibly a twin or triplet. , showing ultrasound ages of 5 weeks 0 days and 4 weeks 6 days (CLINT =. 09/24/2019, 09/25/2019). Recommend followup ultrasound in 7-10 days to confirm. viability. 2. Leiomyomatous uterus. This report was reviewed by Dr. Syed. Re-Evaluation - Re-Evaluation First Eval Re-Evaluation Time: 22:20 Change: Improved Comment: Pt states pain is controlled. No vag bleeding. Consult with Dr. Burt and results discussed with patient and her . Pt is discharged and advised that she must have close SALES INTERN follow up in the next 1-2 days and to return to the ED if new or worsening symptoms. GIGU Course/Dx - Course Course Of Treatment: Patient is a 38 y/o A4 F who believes she is approximately 6 weeks , LMP 12/15/18, who presents to [facility] with complaints of right-sided abdominal cramping without vaginal bleeding x 2 weeks. [facility] and advised to evaluate for possible ectopic . Bloodwork WNL with exception of creatinine 1.01. Beta HCG was 474.53. UA showed 1+ blood, 2+ leukocyte esterase, trace WBC, 1+ RBC, and present squamous epith cells. Urine culture pending. TRANSVAGINAL US. IMPRESSION: 1. Intrauterine of unknown viability, possibly a twin or triplet. , showing ultrasound ages of 5 weeks 0 days and 4 weeks 6 days (CLINT =. 09/24/2019, 09/25/2019). Recommend followup ultrasound in 7-10 days to confirm. viability. 2. Leiomyomatous uterus. Dr. Burt states that Sx do not sound like ectopic prengancy. He advised to treat pain symptomatically and have the patient follow up with Dr. Garcia in the office tomorrow. - Diagnoses Differential Diagnoses - Female: Appendicitis, Ectopic , Urinary Tract Infection Provider Diagnoses: Abdominal pain during , Intrauterine , Leiomyoma of uterus - Physician Notifications Discussed Care Of Patient With: Vito Burt Time Discussed With Above Provider: 22:15 Instructed by Provider To: Other - Dr. Burt states that Sx and US results do not sound like ectopic prengancy. He advised to treat pain symptomatically and have the patient follow up with Dr. Garcia (pt's OB provider) in the office tomorrow. Discharge ED - Sign-Out/Discharge Documenting (check all that apply): Patient Departure - DISCHARGE - Discharge Plan Condition: Stable Disposition: HOME Patient Education Materials: Abdominal Pain in (ED) Forms: *Work Release Referrals: Vito Richards MD [Primary Care Provider] - Additional Instructions: We have given you a copy of your ultrasound report tonight. We've also spoken with Dr. Vito Burt the OB doctor on-call about your report. The ultrasound shows intrauterine , possible twin or triplet gestation. Your hCG level was 474.5 tonight. Your blood type is O+. Your urine shows some red blood cells and has positive leukocyte esterase, so you may have a urinary tract infection. We will wait for the culture results before treating that. So it is possible we may call you and prescribe an antibiotic for you. We have your allergies listed in the computer. Dr. Burt states this is not an ectopic , based on the intrauterine pregnancies noted, and no masses in your ovaries or tubes. You will need close follow-up for this, as it may be an early , or it may be a miscarriage that will happen. You should call Dr. Garcia's office in the morning and advised them of your ER visit tonight and your need for close follow-up and repeat labs. He may take acetaminophen as directed for pain. Please return to the emergency room for any vaginal bleeding, increased pain or new or worsening symptoms. - Billing Disposition and Condition Condition: STABLE Disposition: Home - Attestation Statements Document Initiated by Shannan: Yes Documenting Scribe: CATARINO DUQUE Provider For Whom Olivieribe is Documenting (Include Credential): KADY SYED MD Scribe Attestation: CATARINO Sweeney, scribed for KADY SYED MD on 02/13/19 at 0946. Scribe Documentation Reviewed: Yes Provider Attestation: The documentation as recorded by the CATARINO pyle accurately reflects the service I personally performed and the decisions made by me, KADY SYED MD Status of Scribe Document: Viewed
[2019-01-22 22:54] VITALS: BP 147/94
== END 2019-01-22 22:48 | disposition home or self-care (01) ==
LOC: ED 17:58
DX: O26.891 Other specified pregnancy related conditions, first trimester (principal); R10.9 Unspecified abdominal pain; O34.11 Maternal care for benign tumor of corpus uteri, first trimester; D25.9 Leiomyoma of uterus, unspecified; Z3A.01 Less than 8 weeks gestation of pregnancy; J45.909 Unspecified asthma, uncomplicated; F41.9 Anxiety disorder, unspecified; F32.9 Major depressive disorder, single episode, unspecified; Z79.899 Other long term (current) drug therapy; Z88.0 Allergy status to penicillin; Z88.1 Allergy status to other antibiotic agents; Z91.040 Latex allergy status
CPT/HCPCS: 36415; 76817; 80053; 81003; 81015; 83605; 84702; 85025; 86140; 86900; 86901; 87077; 87086; 99282

== ENCOUNTER 2019-07-18 05:54 | Emergency (ER) | payer BC ==
[2019-07-18] MEDS ORDERED: Metoclopramide IV* 5 MG/ML 2 ML VIAL IV ONE (06:45)
[2019-07-18] MEDS ORDERED: NS 0.9% 1000 ML** 1,000 ML IV ONE (06:45)
[2019-07-18 07:11] LABS: ABS Eosinophils 0.1 10^3/ul (0-0.6); ABS Lymphocytes 1.4 10^3/ul (1.0-4.8); ABS Monocytes 0.5 10^3/ul (0-0.8); ABS Neutrophils 7.2 10^3/ul (1.5-7.7); Hematocrit 34 % (35-47); Hemoglobin 12.1 g/dL (12.0-16.0); Lymphocyte % 15.2 %; Mean Corpuscular HGB Conc 36 g/dL (31-36); Mean Corpuscular Hemoglobin 31 pg (27-31); Mean Corpuscular Volume 89 fL (80-97); Mean Platelet Volume 8.2 fL (7.4-10.4); Nucleated Red Blood Cells % 0.1; Platelet Count 324 10^3/uL (150-450); Red Blood Count 3.87 10^6 /uL (3.70-4.87); Red Cell Distribution Width 14 % (10-15); White Blood Count 9.2 10^3/uL (3.5-10.8)
--- OUTSIDE RECORDS SUMMARY | 2019-07-18 07:12 | XMS REPORT ---
:1980 Author Organization [facility] Address [address] [place] [address] Care Team Providers Name Role Phone Fred Jaimes Unavailable Unavailable PROBLEMS Type Condition ICD9-CM [id number] Onset Condition SNOMED Code Code Code Dates Status Problem Breast lump N63.0 Active 07603350 Problem Essential I10 Active 21692969 hypertension Problem Gastroesophageal K21.9 Active 994167493 reflux disease without esophagitis Problem Other obesity due to E66.09 Active 510999869 excess calories Problem Dysthymia F34.1 Active 52495442 Problem Hiatal hernia K44.9 Active 74735873 ALLERGIES No Information ENCOUNTERS Encounter Location Date Diagnosis [address], [place] [address], [place] [address] [place] [address], [place] [address] [facility] [address] Apr, Dysthymia F34.1 ; [place] [address] hypertension I10 and Z33.1 [facility] [address] Apr, [place] [address] [facility] [address] Apr, Flu-like symptoms R68.89 [place] [address] [facility] [address], [place] [address] [facility] [address], [place] [address] [place] [address] Mar, Dysthymia F34.1 ; [place] [address] lump N63.0 and Essential hypertension I10 [place] [address] [place] Feb, Dysthymia F34.1 ; [place] [address] obesity due to excess calories E66.09 ; Body mass index (BMI) of 35.0-35.9 in adult Z68.35 and Elevated blood pressure R03.0 [place] [address], [place] [address] [place] [address] Jan, [place] [address] [place] [address] Jan, Dysthymia F34.1 [place] [address] lump N63.0 [place] [address], [place] [address] Jul, [place] [address], [place] [address] May, Dysthymia F34.1 [place] [address] [place] [address] Apr, [place] [address] [place] [address] Apr, Dysthymia F34.1 [place] [address] [place] [address] Feb, Less than 8 [place] [address] of Z3A.01 [place] [address] Feb, [place] [address] [place] [address] Feb, Dysthymia F34.1 ; [place] [address] Gastroesophageal reflux disease without esophagitis K21.9 and Missed menses N92.[address] Feb, [place] [address] [place] [address] Dec, [place] [address] [place] [address] Nov, [place] [address] Nov, [place] [address] Nov, Dysthymia F34.1 [place] [address] Nacho Browne [address] Oct, [place] [address] [facility] [address] Oct, Dysthymia F34.1 [place] [address] Sep, [place] [address] calories E66.09 ; Hiatal hernia K44.9 ; BMI 37.0-37.9, adult Z68.37 ; Dysthymia F34.1 ; Breast lump N63.0 and Borderline hypertension R03.[address] Sep, [place] [address] Sep, [place] [address] Sep, Dysthymia F34.1 ; [place] [address] obesity due to excess calories E66.09 ; BMI 37.0-37.9, adult Z68.37 and Family planning counseling Z30.[address], [place] [address], [place] [address], [place] [address] [place], [place] [address] August, [place] [address] [place] [address] August, Lump of left breast N63.20 [place] [address] and Hypertension, unspecified type I10 [address] Jul, [place] [address] [place] [address] Jul, Dysthymia F34.1 ; [place] [address] thoracic spine M54.6 ; Other chronic pain G89.29 ; Gastroesophageal reflux disease without esophagitis K21.9 ; Hiatal hernia K44.9 ; Other obesity due to excess calories E66.09 and Body mass index (BMI) of 38.0-38.9 in adult Z68.[address] May, 2017 [place] [address] IMMUNIZATIONS No Known Immunizations SOCIAL HISTORY Never Assessed REASON FOR REFERRAL FUNCTIONAL STATUS PLAN OF CARE VITAL SIGNS MEDICATIONS Unknown Medications PROCEDURES No Known procedures RESULTS No Results REASON FOR VISIT [facility] Insurance Providers [facility] Member Patient Patient Patient Patient Patient Subscriber Subscriber Subscriber Group Insurance Plan Plan Plan Plan ID Relationship Address Phone Name Date of ID Name Date of No Type Insurance Insurance Insurance Coverage to Subscriber Address Phone Name Dates Case [phone] Case self Breana [id number] Management [place] [id number] [facility] [employer] [phone] [employer] Breana [id number] BCBS PPO [id number] BCBS PPO [facility] 7 EPO [place] EPO [place]ad [id number] MEDICAL (GENERAL) HISTORY Type Description Date Medical History migraine Medical History GERD Medical History Shingles Medical History Depression Medical History sleep apnea Surgical History appendectomy 04/2014 Surgical History 3 miscarriages Surgical History D&C, twice in 2006 and once in 2014
--- OUTSIDE RECORDS SUMMARY | 2019-07-18 07:12 | XMS REPORT ---
:1980 Author Organization [facility] Address [address] [place] [address] Care Team Providers Name Role Phone Paris Whyte Unavailable Unavailable PROBLEMS Type Condition ICD9-CM [id number] Onset Condition SNOMED Code Code Code Dates Status Problem Breast lump N63.0 Active 28936915 Problem Essential I10 Active 54564416 hypertension Problem Gastroesophageal K21.9 Active 146846370 reflux disease without esophagitis Problem Other obesity due to E66.09 Active 488345427 excess calories Problem Dysthymia F34.1 Active 59210149 Problem Hiatal hernia K44.9 Active 69387745 ALLERGIES No Information ENCOUNTERS Encounter Location Date Diagnosis [address] May, [place] [address] May, Dysthymia F34.1 [place] [address] [facility] [address] May, [place] [address] [facility] [address] Apr, [place] [address] [facility] [address] Apr, Dysthymia F34.1 ; [place] [address] hypertension I10 and Z33.1 [facility] [address] Apr, Flu-like symptoms R68.89 [place] [address] [facility] [address] Mar, [place] [address] [facility] [address] Mar, [place] [address] [place] [address] [place] Mar, Dysthymia F34.1 ; [place] [address] lump N63.0 and Essential hypertension I10 [place] [address] [place] Feb, Dysthymia F34.1 ; [place] [address] obesity due to excess calories E66.09 ; Body mass index (BMI) of 35.0-35.9 in adult Z68.35 and Elevated blood pressure R03.0 [place] [address] [place] Feb, [place] [address] [place] [address] [place] Jan, [place] [address] [place] [address] [place] Jan, Dysthymia F34.1 [place] [address] lump N63.0 [place] [address] [place] August, [place] [address] Jul, [place] [address] Jun, [place] [address] May, Dysthymia F34.1 [place] [address] [place] [address] [place] Apr, [place] [address] [place] [address] [place] Apr, Dysthymia F34.1 [place] [address] [place] [address] [place] Feb, Less than 8 weeks [place] [address] of Z3A.01 [place] [address] [place] Feb, [place] [address] [place] [address] [place] Feb, Dysthymia F34.1 ; [place] [address] Gastroesophageal reflux disease without esophagitis K21.9 and Missed menses N92.[address] Feb, [place] [address] Dec, [place] [address] [place] [address] Nov, [place] [address] Nov, [place] [address] [place] [address] Nov, Dysthymia F34.1 [place] [address] Nacho Browne [address] Oct, [place] [address] Oct, Dysthymia F34.1 [place] [address] Sep, Other obesity [place] [address] calories E66.09 ; Hiatal hernia K44.9 ; BMI 37.0-37.9, adult Z68.37 ; Dysthymia F34.1 ; Breast lump N63.0 and Borderline hypertension R03.[address] Sep, [place] [address] Sep, [place] [address] Sep, Dysthymia F34.1 ; [place] [address] obesity due to excess calories E66.09 ; BMI 37.0-37.9, adult Z68.37 and Family planning counseling Z30.[address] August, [place] [address] August, [place] [address] August, [place] [address] August, [place] [address] August, [place] [address] [place] [address] August, Lump of left breast N63.20 [place] [address] and Hypertension, unspecified type I10 [facility] [address] Jul, [place] [address] Jul, Dysthymia F34.1 ; [place] [address] thoracic spine M54.6 ; Other chronic pain G89.29 ; Gastroesophageal reflux disease without esophagitis K21.9 ; Hiatal hernia K44.9 ; Other obesity due to excess calories E66.09 and Body mass index (BMI) of 38.0-38.9 in adult Z68.38 [facility] [address] [facility] 14 May, 2017 [place] [address] IMMUNIZATIONS No Known Immunizations SOCIAL HISTORY Never Assessed REASON FOR REFERRAL FUNCTIONAL STATUS PLAN OF CARE Activity Details Follow Up 2 Weeks Reason:counseling VITAL SIGNS MEDICATIONS Medication Instructions Dosage Frequency Start End Date Duration Status Date Sertraline HCl Orally Once a day 1 tablet Mar, Active 50 mg with a 100mg 2019 tablet (total dose 150mg/day) Sertraline HCl TAKE ONE Active 100 MG TABLET BY MOUTH EVERY DAY Labetalol HCl Orally Twice a 1 tablet 12h Mar, Active 100 mg day 2019 28-0.8 Orally Once a day 1 tablet 24h Active MG PROCEDURES Procedure Date Ordered Result Body Site No Billable Treatment Provided May 30, 2019 RESULTS No Results REASON FOR VISIT Insurance Providers [facility] Health Member Patient Patient Patient Patient Patient Subscriber Subscriber Subscriber Group Insurance Plan Plan Plan Plan ID Relationship Address Phone Name Date of ID Name Date of No Type Insurance Insurance Insurance Coverage to Subscriber Address Phone Name Dates Case [phone] Case self Breana [id number] Management Nacho Browne [address] [id number] [facility] [employer] [phone] [employer] Breana [id number] BCBS PPO [id number] BCBS PPO [facility] 7 EPO Tr[place] E[place] Trad [id number] MEDICAL (GENERAL) HISTORY Type Description Date Medical History migraine Medical History GERD Medical History Shingles Medical History Depression Medical History sleep apnea Surgical History appendectomy 04/2014 Surgical History 3 miscarriages Surgical History D&C, twice in 2006 and once in 2014
--- OUTSIDE RECORDS SUMMARY | 2019-07-18 07:12 | XMS REPORT ---
:1980 Author Organization [facility] Address [address] [place] [address] Care Team Providers Name Role Phone Fred Jaimes Unavailable Unavailable PROBLEMS Type Condition ICD9-CM LUT44-LZ Onset Condition SNOMED Code Code Code Dates Status Problem Breast lump N63.0 Active 01832791 Problem Essential I10 Active 60153070 hypertension Problem Gastroesophageal K21.9 Active 426816891 reflux disease without esophagitis Problem Other obesity due to E66.09 Active 752775807 excess calories Problem Dysthymia F34.1 Active 58003741 Problem Hiatal hernia K44.9 Active 98629286 ALLERGIES No Information ENCOUNTERS Encounter Location Date Diagnosis [address] May, [place] [address] May, [place] [address] [place] [address] May, [place] [address] [facility] [address] Apr, Dysthymia F34.1 ; [place] [address] hypertension I10 and Z33.1 [facility] [address] Apr, [place] [address] [facility] [address] Apr, Flu-like symptoms R68.89 [place] [address] [facility] [address] Mar, [place] [address] [facility] [address] Mar, [place] [address] [place] [address] Mar, Dysthymia F34.1 ; [place] [address] lump N63.0 and Essential hypertension I10 [place] [address] [place] Feb, Dysthymia F34.1 ; [place] [address] obesity due to excess calories E66.09 ; Body mass index (BMI) of 35.0-35.9 in adult Z68.35 and Elevated blood pressure R03.0 [place] [address] [place] Feb, [place] [address] [place] [address] [place] Jan, [place] [address] [place] [address] [place] Jan, Dysthymia F34.1 [place] [address] lump N63.0 [place] [address] [place] August, [place] [address] Jul, [place] [address] Jun, [place] [address] May, Dysthymia F34.1 [place] [address] [place] [address] [place] Apr, [place] [address] [place] [address] [place] Apr, Dysthymia F34.1 [place] [address] [place] [address] [place] Feb, Less than 8 [place] [address] of Z3A.01 [place] [address] [place] Feb, [place] [address] [place] [address] [place] Feb, Dysthymia F34.1 ; [place] [address] Gastroesophageal reflux disease without esophagitis K21.9 and Missed menses N92.[address] Feb, [place] [address] [place] [address] Dec, [place] [address] [place] [address] [place] Nov, [place] [address] Nov, [place] [address] Nov, Dysthymia F34.1 [place] [address] Nacho Browne [address] Oct, [place] [address] [facility] [address] Oct, Dysthymia F34.1 [place] [address] Sep, Other [place] [address] calories E66.09 ; Hiatal hernia K44.9 ; BMI 37.0-37.9, adult Z68.37 ; Dysthymia F34.1 ; Breast lump N63.0 and Borderline hypertension R03.[address] Sep, [place] [address] Sep, [place] [address] Sep, Dysthymia F34.1 ; [place] [address] obesity due to excess calories E66.09 ; BMI 37.0-37.9, adult Z68.37 and Family planning counseling Z30.[address] August, [place] [address] August, [place] [address] August, [place] [address] August, [place] [address] August, [place] [address] [place] [address] [place] August, Lump of left breast N63.20 [place] [address] and Hypertension, unspecified type I10 [address] Jul, [place] [address] [place] [address] [place] Jul, Dysthymia F34.1 ; [place] [address] thoracic spine M54.6 ; Other chronic pain G89.29 ; Gastroesophageal reflux disease without esophagitis K21.9 ; Hiatal hernia K44.9 ; Other obesity due to excess calories E66.09 and Body mass index (BMI) of 38.0-38.9 in adult Z68.[address] 14 May, 2017 [place] [address] IMMUNIZATIONS No Known Immunizations SOCIAL HISTORY Never Assessed REASON FOR REFERRAL FUNCTIONAL STATUS PLAN OF CARE VITAL SIGNS MEDICATIONS Unknown Medications PROCEDURES No Known procedures RESULTS No Results REASON FOR VISIT Acute Triage Insurance Providers [facility] Health Member Patient Patient Patient Patient Patient Subscriber Subscriber Subscriber Group Insurance Plan Plan Plan Plan ID Relationship Address Phone Name Date of ID Name Date of No Type Insurance Insurance Insurance Coverage to Subscriber Address Phone Name Dates Case [phone] Case self Breana [id number] Management [place] [address] [facility] [address] [facility] [employer] [phone] [employer] Breana [id number] BCBS PPO [id number] BCBS PPO [facility] 7 EPO Trad [place] EPO Trad [id number] MEDICAL (GENERAL) HISTORY Type Description Date Medical History migraine Medical History GERD Medical History Shingles Medical History Depression Medical History sleep apnea Surgical History appendectomy 04/2014 Surgical History 3 miscarriages Surgical History D&C, twice in 2006 and once in 2014
--- OUTSIDE RECORDS SUMMARY | 2019-07-18 07:12 | XMS REPORT | Continuity of Care Document ---
:1980 External Reference #:[id number] Author Name Ultrasounds (transmitted by agent of provider Sade Delgado) Address [address] [place] [address] Care Team Providers Name Role Phone Jesusita Zayas MD Care Team Information Security Sales Consultant [phone] Problems Active Problems Provider Date Supervision of with grand Anat Matilde Chaudrhy CNM Onset: 2019 multiparity, first trimester Social History Type Date Description Comments Sex Unknown Tobacco Use Start: Unknown Patient has never smoked Smoking Status Reviewed: 09/07/18 Patient has never smoked Allergies, Adverse Reactions, Alerts Active Allergies Reaction Severity Comments Date Latex 06/11/2014 Clindamycin 08/13/2014 Penicillin 09/04/2017 Kiwi 09/04/2017 Inactive Allergies NKDA 03/31/2009 Latex sensitive rash 03/31/2009 NKDA 06/11/2014 Medications Active Medications SIG Qnty Indications Ordering Provider Date Diclegis 2 tab by mouth 180tabs Anat Clayton 07/01/2019 10-10mg at bedtime PEYTON Chaudhry Tablets DR initally, up to 4 tabs per day (one tab in morning, one tab midafternoon, and 2 tabs at bedtime) Lisinopril Unknown 10mg Tablets Sertraline HCL 1 by mouth every Unknown 50mg day Tablets Unknown Tablets Medications Administered in Office Medication SIG Qnty Indications Ordering Provider Date PT SCRN Tbco Id as Non User Calista Garcia MD 09/07/2018 Injection PT SCRN Tbco Id as Non User Calista Garcia MD 08/07/2018 Injection PT SCRN Tbco Id as Non User Donn Vega MD 01/05/2018 Injection PT SCRN Tbco Id as Non User Jerry Bejarano M.D. 09/04/2017 Injection Immunizations Description No Information Available Vital Signs Date Vital Result Comment 07/01/2019 1:16pm BP Systolic 132 mmHg BP Diastolic 78 mmHg Height 62 inches 5'2" Weight 195.00 lb BMI (Body Mass Index) 35.7 kg/m2 09/07/2018 11:28am BP Systolic 146 mmHg BP Diastolic 100 mmHg Height 61 inches 5'1" Weight 189.00 lb BMI (Body Mass Index) 35.7 kg/m2 Last Menstrual Period 1806563 9 Parity 4 Results Test Acquired Date Facility Test Result H/L Range Note PNL No 07/01/[address] [facility] Rubella Screen <pending> [place] [address] [phone] Hemoglobin A1c <pending> Hepatitis B Surface Ag <pending> Syphillis Igg W/Reflex RPR <pending> Laboratory test 07/01/[address] [facility] Hepatitis C <pending> [place] [address] Antibody [phone] Laboratory test 06/05/[address] [facility] HCG 86252.00 1 [place] [address] mIU/mL [phone] Laboratory test 05/30/[address] [facility] HCG 93620.00 2, 3 [place] [address] mIU/mL [phone] 1 <5.0 Negative 5.0 - 25.0 Indeterminate (Repeat testing recommended after 72 hours) >25.0 Positive Perimenopausal women can display HCG levels of up to 20 mIU/mL 2 [id number] 3 <5.0 Negative 5.0 - 25.0 Indeterminate (Repeat testing recommended after 72 hours) >25.0 Positive Perimenopausal women can display HCG levels of up to 20 mIU/mL Procedures Date Code Description Status 07/01/2019 57476 Admin Patient Focused Health Risk Assessment Instrument Completed 07/01/2019 00267 OB Ultrasound First Trimester Completed Medical Devices Description No Information Available Encounters Description No Information Available Assessments Date Code Description Provider 07/01/2019 O26.91 related conditions, Murray Almanza JR, DO unspecified, first trimester 07/01/2019 O09.41 Supervision of with grand Anat Chaudhry CNM multiparity, first trimester 07/01/2019 O26.91 related conditions, Ultrasounds unspecified, first trimester 07/01/2019 O10.011 Pre-existing essential hypertension Anat Cahudhry CNM complicating , first trimester 05/30/2019 O36.80x0 with inconclusive Susan Adame MD viability, not applicable or unspecified 05/30/2019 O36.80x0 with inconclusive Laboratory viability, not applicable or unspecified Plan of Treatment Future Appointment(s):07/15/2019 10:45 am - Anat Chaudhry CNM at [facility]09/07/2018 - Calista Garcia MDO02.1 Missed jrmctdesE01.69 Encounter for other general counseling and advice on procreaComments:Recommend trying to switch to SSRI instead of Welbutrin since they are better studied in .Will chat with PCP about that. Discussed her risk for miscarriage with her age and history, higher chance of chromosomal abnormalities including down syndrome. Can do first trimester testing. Functional Status Description No Information Available Mental Status Description No Information Available Referrals Description No Information Available
--- OUTSIDE RECORDS SUMMARY | 2019-07-18 07:12 | XMS REPORT | Continuity of Care Document ---
:1980 External Reference #:[id number] Author Name Anat Chaudhry CNM (transmitted by agent of provider Sade Delgado) Address [address] [place] [address] Care Team Providers Name Role Phone Jesusita Zayas MD Care Team Information Mold Swabber [phone] Problems Active Problems Provider Date Supervision of with grand Anat Chaudhry CNM Onset: 2019 multiparity, first trimester Social [...] Mass Index) 35.7 kg/m2 Last Menstrual Period 6206501 9 Parity 4 Results Test Acquired Date Facility Test Result H/L Range Note PNL No 07/01/2019 [facility] Rubella Screen <pending> [place] [address] [phone] Hemoglobin A1c <pending> Hepatitis B Surface Ag <pending> Syphillis Igg W/Reflex RPR <pending> Laboratory test 07/01/2019 [facility] Hepatitis C <pending> [place] [address] Antibody [phone] Laboratory test 06/05/2019 [facility] HCG 75508.00 1 [place] [address] mIU/mL [phone] Laboratory test 05/30/2019 [facility] HCG 42299.00 2, 3 [place] [address] mIU/mL [phone] 1 <5.0 Negative 5.0 - 25.0 Indeterminate (Repeat testing recommended after 72 hours) >25.0 Positive Perimenopausal women can display HCG levels of up to 20 mIU/mL 2 [id number] 3 <5.0 Negative 5.0 - 25.0 Indeterminate (Repeat testing recommended after 72 hours) >25.0 Positive Perimenopausal women can display HCG levels of up to 20 mIU/mL Procedures Date Code Description Status 07/01/2019 52515 Admin Patient Focused Health Risk Assessment Instrument Completed 07/01/2019 59686 OB Ultrasound First Trimester Completed Medical Devices Description No Information Available Encounters Description No Information Available Assessments Date Code Description Provider 07/01/2019 O26.91 related conditions, Murray Almanza , DO unspecified, first trimester 07/01/2019 O09.41 Supervision of with grand Anat Chaudhry CNM multiparity, first trimester 07/01/2019 O26.91 related conditions, Ultrasounds unspecified, first trimester 07/01/2019 O10.011 Pre-existing essential hypertension Anat Chaudhry CNM complicating , first trimester 05/30/2019 O36.80x0 with inconclusive Susan Adame MD viability, not applicable or unspecified 05/30/2019 O36.80x0 with inconclusive Laboratory viability, not applicable or unspecified Plan of Treatment Future Appointment(s):07/15/2019 10:45 am - Anat [facility]audhry CNM at [facility]09/07/2018 - Calista Garcia MDO02.1 Missed vcwqcuznI66.69 Encounter for other general counseling and advice [...]
--- OUTSIDE RECORDS SUMMARY | 2019-07-18 07:12 | XMS REPORT | Continuity of Care Document ---
:1980 External Reference #:[id number] Author Name Anat Chaudhry CNM Address [address] [facility], [facility] [place] [address] Care Team Providers Name Role Phone Jesusita Zayas MD Care Team Information [employer] [phone] Problems Active Problems Provider Date Supervision of [...] Medications Active Medications SIG Qnty Indications Ordering Date Provider Promethazine HCL 1 tab by mouth 90tabs Anat Clayton 07/01/2019 25mg every 4-6 hours Richa CNM Tablets Ondansetron take 1 tablet 30tabs Anat Clayton 07/01/2019 4mg Tablets dissolved in the Richa, CNM Dispers mouth every 8 hours as needed for nausea and vomiting Unknown Tablets Losartan Potassium 1 tablet bid Unknown 100mg Tablets Sertraline HCL 1 by mouth every Unknown 100mg day Tablets History Medications Diclegis 2 tab by mouth at 180tabs Anat Clayton 07/01/2019 - bedtime initally, up PEYTON Chaudhry 07/15/2019 10-10mg Tablets to 4 tabs per day (one DR tab in morning, one tab midafternoon, and 2 tabs at bedtime) Medications Administered in Office Medication SIG Qnty [...] Mass Index) 35.7 kg/m2 Last Menstrual Period [id number] 9 Parity 4 Results Test Acquired Date Facility Test Result H/L Range Note Tot Prot 24HR 07/04/2019 [facility] Urine Collection 24 hr 1 [place] [address] Time OB [phone] Urine Total Volume OB 1350 mL Ur TP Concentration Obstetric 14 mg/dL Ur Tot Protein/24Hr Obstetric 189 mg/24Hr High 0-165 PNL No 07/01/2019 [facility] Rubella Screen Immune Immune 2, 3 [place] [address] IgG [phone] Hemoglobin A1c 5.1 % Normal 4.0-5.6 4 Hepatitis B Surface Antigen Nonreactive Nonreactive 5 Syphillis Igg W/Reflex RPR Negative Negative 6 CBC With No 07/01/2019 [facility] White Blood 8.4 10^3/uL Normal 3.5-10.8 [place] [address] Count [phone] Red Blood Count 4.20 10^6/uL Normal 3.70-4.87 Hemoglobin 12.8 g/dL Normal 12.0-16.0 Hematocrit 40 % Normal 35-47 Mean Corpuscular Volume 94 fL Normal 80-97 Mean Corpuscular Hemoglobin 31 pg Normal 27-31 Mean Corpuscular HGB Conc 32 g/dL Normal 31-36 Red Cell Distribution Width 16 % High 10-15 Platelet Count 353 10^3/uL Normal 150-450 Mean Platelet Volume 9.1 fL Normal 7.4-10.4 Type And Screen 07/01/2019 [facility] Patient [place] [address] [phone] Antibody Screen NEGATIVE Lead 07/01/2019 [facility] Lead,Venous, B < 1.0 g/dL 0.0- 4.9 7 [place] [address] [phone] Venous/Capillary Venous Submitting Laboratory Phone [phone] HIV 1&2 p24 07/01/2019 [facility] HIV 4th Non[place] [address] Generation [phone] Hepatitis C 07/01/2019 [facility] HCV Index 0.01 s/[place] [address] [phone] Hepatitis C Antibody Negative Negative Comp Metabolic 07/01/2019 [facility] Sodium 136 mmol/L Normal 135-145 [place] [address] [phone] Potassium 4.2 mmol/L Normal 3.5-5.0 Chloride 103 mmol/L Normal 101-111 Co2 Carbon Dioxide 25 mmol/L Normal 22-32 Anion Gap 8 mmol/L Normal 2-11 Glucose 77 mg/dL Normal 70-100 Blood Urea Nitrogen 10 mg/dL Normal 6-24 Creatinine 0.61 mg/dL Normal 0.51-0.95 BUN/Creatinine Ratio 16.4 Normal 8-20 Calcium 9.7 mg/dL Normal 8.6-10.3 Total Protein 6.6 g/dL Normal 6.4-8.9 Albumin 4.0 g/dL Normal 3.2-5.2 Globulin 2.6 g/dL Normal 2-4 Albumin/Globulin Ratio 1.5 Normal 1-3 Total Bilirubin 0.20 mg/dL Normal 0.2-1.0 Alkaline Phosphatase 71 U/L Normal 34-104 Alt 14 U/L Normal 7-52 Ast 13 U/L Normal 13-39 Egfr Non- 108.6 >60 Egfr 131.4 >60 9 Urine Culture And 07/01/2019 [facility] Urine Culture SEE RESULT 10 [place] [address] BELOW [phone] Laboratory test 06/05/2019 [facility] HCG 75154.00 11 finding ULISES Dominguez 94369 mIU/mL [phone] Laboratory test 05/30/2019 [facility] HCG 44178.00 12, 13 finding ULISES Dominguez 60368 mIU/mL [phone] 1 COLLECTION 07/03/19 AT 0700 TO 07/04/19 AT 0800 2 [id number] 3 [id number] 4 Therapeutic target for the treatment of diabetes mellitus patients is <7% HBA1C, and in selective patients <6.0%. Please refer to [place] [employer] diabetic care guidelines for further information. 5 [id number] 6 [id number] 7 ADDITIONAL INFORMATION Testing performed by Inductively Coupled Plasma-Mass Spectrometry (ICP-MS). This test was developed and its performance characteristics determined by [facility] in a manner consistent with CLIA requirements. This test has not been cleared or approved by the U.S. Food and Drug Administration. 8 Test Performed by: [facility] [address] [place] [address] Human Geography Instructor: Mani Julien M.D. Ph.D.; CLIA# [id number] 9 Because ethnic data is not always readily available, this report includes an eGFR for both -Americans and non- Americans. The National Kidney Disease Education Program (NKDEP) does not endorse the use of the MDRD equation for patients that are not between the ages of 18 and 70, are , have extremes of body size, muscle mass, or nutritional status, or are non- or non-. According to the National Kidney Foundation, irrespective of diagnosis, the stage of the disease is based on the level of kidney function: Stage Description GFR(mL/min/1.73 m(2)) 1 Kidney damage with normal or decreased GFR 90 2 Kidney damage with mild decrease in GFR 60-89 3 Moderate decrease in GFR 30-59 4 Severe decrease in GFR 15-29 5 Kidney failure <15 (or dialysis) 10 SEE RESULT BELOW Name: BOYLE- BREANA HUNTER : [address]: Anat Chaudhry [facility] Acct: [id number] Unit: [id number] AGE: 39 Location: [facility] Re07/01/19 SEX: F Status: REG REF SPEC: [id number] RAHUL: 07/01/19-[address]: Anat Chaudhry [facility] REQ: [id number] RECD: 07/02/19 STATUS: COMP _ SOURCE: URINE SPDESC: ORDERED: Urine Culture COMMENTS: [id number] Urine Source: Random Procedure Result Reported Site Urine Culture Final 07/03/19- 1626 ML Organism 1 STREP GROUP B [place] Count 10-25,000 (Moderate) CFU/ML Susceptibility testing of penicillins and other B-lactams approved by FDA for treatment of Streptococcus pyogenes (Group A Strep) and Streptococcus agalactiae (Group B Strep) is not necessary for clinical purposes and need not be done routinely, since as with vancomycin, resistant strains have not been recognized. (CLSI E061-M17;p.66) Positive isolates will be saved for one week. Please call the Microbiology Laboratory if further susceptibility testing is needed. * ML - Main Lab . END OF REPORT DEPARTMENT OF PATHOLOGY, [address] [place] [address] Nasim Landry M.D. Director [facility] # [id number] 11 <5.0 Negative 5.0 - 25.0 Indeterminate (Repeat testing recommended after 72 hours) >25.0 Positive Perimenopausal women can display HCG levels of up to 20 mIU/mL 12 [id number] 13 <5.0 Negative 5.0 - 25.0 Indeterminate (Repeat testing recommended after 72 hours) >25.0 Positive Perimenopausal women can display HCG levels of up to 20 mIU/mL Procedures Date Code Description Status 07/01/2019 89703 Admin Patient Focused Health Risk Assessment Instrument Completed 07/01/2019 20847 OB Ultrasound First Trimester Completed Medical Devices Description No Information Available Encounters Description No Information Available Assessments Date Code Description Provider 07/01/2019 O26.91 related conditions, Murray Almanza JR, DO unspecified, first trimester 07/01/2019 O09.41 Supervision of with grand Anat Clayton PEYTON Chaudhry multiparity, first trimester 07/01/2019 O26.91 related conditions, Ultrasounds unspecified, first trimester 07/01/2019 O10.011 Pre-existing essential hypertension Anat Chaudhry CNM complicating , first trimester 05/30/2019 O36.80x0 with inconclusive Susan Adame MD viability, not applicable or unspecified 05/30/2019 O36.80x0 with inconclusive Laboratory viability, not applicable or unspecified Plan of Treatment 09/07/2018 - Calista Garcia MDO02.1 Missed dhvayfleC04.69 Encounter for other general counseling and advice on procreaComments:Recommend trying to switch to SSRI instead of Welbutrin since they are better studied in .Will chat with PCP about that. Discussed her risk for miscarriage with her age and history , higher chance of chromosomal abnormalities including down syndrome. Can do first trimester testing. Functional Status Description No Information Available Mental Status Description No Information Available Referrals Refer to Reason for Referral Status Appt Date [facility] in Created [facility] [address] [facility] [place] [address] [phone]
--- OUTSIDE RECORDS SUMMARY | 2019-07-18 07:12 | XMS REPORT ---
:1980 Author Organization [facility] Address [address] [place] [address] Care Team Providers Name Role Phone Fred Jaimes Unavailable Unavailable PROBLEMS Type Condition ICD9-CM [id number] Onset Condition SNOMED Code Code Code Dates Status Problem Breast lump N63.0 Active 43532187 Problem Essential I10 Active 55221665 hypertension Problem Gastroesophageal K21.9 Active 133679160 reflux disease without esophagitis Problem Other obesity due to E66.09 Active 635139045 excess calories Problem Dysthymia F34.1 Active 68684579 Problem Hiatal hernia K44.9 Active 69049873 ALLERGIES No Information ENCOUNTERS Encounter Location Date Diagnosis [address] Jun, [place] [address] May, [place] [address] [address] May, Dysthymia F34.1 [place] [address] [facility] [address] May, [place] [address] [facility] [address] Apr, Dysthymia F34.1 ; [place] [address] hypertension I10 and Z33.1 [facility] [address] Apr, [place] [address] [facility] [address] Apr, Flu-like symptoms R68.89 [place] [address] [facility] [address] Mar, [place] [address] [place] [address] [place] Mar, [place] [address] [place] [address] [place] Mar, Dysthymia F34.1 ; [place] [address] lump N63.0 and Essential hypertension I10 [place] [address] [place] Feb, Dysthymia F34.1 ; [place] [address] obesity due to excess calories E66.09 ; Body mass index (BMI) of 35.0-35.9 in adult Z68.35 and Elevated blood pressure R03.0 [place] [address] [place] Feb, [place] [address] [place] [address] [place] Jan, [place] [address] [place] [address] [place] Jan, Dysthymia F34.1 [place] [address] lump N63.0 [place] [address] [place] August, [place] [address] Jul, [place] [address] [address] Jun, [place] [address] [address] May, Dysthymia F34.1 [place] [address] [place] [address] [place] Apr, [place] [address] [place] [address] [place] Apr, Dysthymia F34.1 [place] [address] [place] [address] [place] Feb, Less than 8 [place] [address] of Z3A.01 [place] [address] [place] Feb, [place] [address] [place] [address] [place] Feb, Dysthymia F34.1 ; [place] [address] Gastroesophageal reflux disease without esophagitis K21.9 and Missed menses N92.[address] Feb, [place] [address] Dec, [place] [address] [place] [address] [place] Nov, [place] [address] Nov, [place] [address] [facility] [address] [place] [address] Nov, Dysthymia F34.1 [place] [address] Nacho Browne [address] Oct, [facility] [place] [address] Oct, Dysthymia F34.1 [place] [address] Sep, Other [place] [address] calories E66.09 ; Hiatal hernia K44.9 ; BMI 37.0-37.9, adult Z68.37 ; Dysthymia F34.1 ; Breast lump N63.0 and Borderline hypertension R03.[address] Sep, [place] [address] Sep, [place] [address] Sep, Dysthymia F34.1 ; [place] [address] obesity due to excess calories E66.09 ; BMI 37.0-37.9, adult Z68.37 and Family planning counseling Z30.[address] August, [place] [address] August, [place] [address] [facility] August, [place] [address] August, [place] [address] [place] [address] [place] August, [place] [address] August, Lump of left breast N63.20 [place] [address] and Hypertension, unspecified type I10 [address] Jul, [place] [address] Jul, Dysthymia F34.1 ; [place] [address] thoracic spine M54.6 ; Other chronic pain G89.29 ; Gastroesophageal reflux disease without esophagitis K21.9 ; Hiatal hernia K44.9 ; Other obesity due to excess calories E66.09 and Body mass index (BMI) of 38.0-38.9 in adult Z68.38 [facility] [address] [facility] 14 May, 2017 [place] [address] IMMUNIZATIONS No Known Immunizations SOCIAL HISTORY Never Assessed REASON FOR REFERRAL FUNCTIONAL STATUS PLAN OF CARE VITAL SIGNS MEDICATIONS Unknown Medications PROCEDURES No Known procedures RESULTS No Results REASON FOR VISIT No Show #2 Insurance Providers [facility] Member Patient Patient Patient Patient Patient Subscriber Subscriber Subscriber Group Insurance Plan Plan Plan Plan ID Relationship Address Phone Name Date of ID Name Date of No Type Insurance Insurance Insurance Coverage to Subscriber Address Phone Name Dates Excell[employer] [phone] Excell[employer] Breana [id number] BCBS PPO [id number] BCBS PPO Felix 7 EPO Trad [place] Trad [id number] Case [phone] Case self Breana [id number] Management [place] 02 Management [facility] [address] [facility] MEDICAL (GENERAL) HISTORY Type Description Date Medical History migraine Medical History GERD Medical History Shingles Medical History Depression Medical History sleep apnea Surgical History appendectomy 04/2014 Surgical History 3 miscarriages Surgical History D&C, twice in 2006 and once in 2014 2006 and 2014
--- OUTSIDE RECORDS SUMMARY | 2019-07-18 07:12 | XMS REPORT ---
:1980 Author Organization [facility] Address [address] [place] [address] Care Team Providers Name Role Phone Fred Jaimes Unavailable Unavailable PROBLEMS Type Condition ICD9-CM SKT15-FG Onset Condition SNOMED Code Code Code Dates Status Problem Breast lump N63.0 Active 85937690 Problem Essential I10 Active 29931142 hypertension Problem Gastroesophageal K21.9 Active 306370183 reflux disease without esophagitis Problem Other obesity due to E66.09 Active 615072094 excess calories Problem Dysthymia F34.1 Active 26276502 Problem Hiatal hernia K44.9 Active 73500225 ALLERGIES No Information ENCOUNTERS Encounter Location Date Diagnosis [address] May, [place] [address] [place] [address] [place] Apr, Dysthymia F34.1 ; [place] [address] hypertension I10 and Z33.1 [place] [address] [place] Apr, Flu-like symptoms R68.89 [place] [address] [place] [address] Mar, [place] [address] [place] [address] [place] Mar, [place] [address] [place] [address] [place] Mar, Dysthymia F34.1 ; [place] [address] lump N63.0 and Essential hypertension I10 [place] [address] [place] Feb, Dysthymia F34.1 ; [place] [address] obesity due to excess calories E66.09 ; Body mass index (BMI) of 35.0-35.9 in adult Z68.35 and Elevated blood pressure R03.0 [facility] [address] Feb, [place] [address] [place] [address] [place] Jan, [place] [address] [place] [address] [place] Jan, Dysthymia F34.1 [place] [address] lump N63.0 [place] [address] [place] August, [place] [address] Jul, [place] [address] Jun, [place] [address] [place] [address] May, Dysthymia F34.1 [place] [address] [place] [address] [place] Apr, [place] [address] [place] [address] [place] Apr, Dysthymia F34.1 [place] [address] [place] [address] [place] Feb, Less than 8 [place] [address] of Z3A.01 [place] [address] [place] Feb, [place] [address] [place] [address] [place] Feb, Dysthymia F34.1 ; [place] [address] Gastroesophageal reflux disease without esophagitis K21.9 and Missed menses N92.[address] Feb, [place] [address] Dec, [place] [address] [place] [address] [place] Nov, [place] [address] Nov, [place] [address] Nov, Dysthymia F34.1 [place] [address] Oct, [place] [address] [place] [address] [place] Oct, Dysthymia F34.1 [place] [address] Sep, Other [place] [address] calories E66.09 ; Hiatal hernia K44.9 ; BMI 37.0-37.9, adult Z68.37 ; Dysthymia F34.1 ; Breast lump N63.0 and Borderline hypertension R03.[address] Sep, [place] [address] Sep, [place] [address] Sep, Dysthymia F34.1 ; [place] [address] obesity due to excess calories E66.09 ; BMI 37.0-37.9, adult Z68.37 and Family planning counseling Z30.[address] August, [place] [address] August, [place] [address] August, [place] [address] August, [place] [address] August, [place] [address] August, Lump of left breast N63.20 [place] [address] and Hypertension, unspecified type I10 [address] Jul, [place] [address] Jul, Dysthymia F34.1 ; [place] [address] thoracic spine M54.6 ; Other chronic pain G89.29 ; Gastroesophageal reflux disease without esophagitis K21.9 ; Hiatal hernia K44.9 ; Other obesity due to excess calories E66.09 and Body mass index (BMI) of 38.0-38.9 in adult Z68.[address] May, [place] [address] IMMUNIZATIONS No Known Immunizations SOCIAL HISTORY Never Assessed REASON FOR REFERRAL FUNCTIONAL STATUS PLAN OF CARE Activity Details Follow Up 3 Months Reason:mood/ blood pressure follow up Pending Test HCG, TOTAL, QL VITAL SIGNS Temperature 97.2 degrees Fahrenheit 2019-05-21 Heart Rate 20 2019-05-21 Weight 191.4 2019-05-21 Height 61 in 2019-05-21 Blood pressure systolic 120 mm Hg 2019-05-21 Blood pressure diastolic 80 mm Hg 2019-05-21 MEDICATIONS Medication Instructions Dosage Frequency Start End Date Duration Status Date Sertraline HCl Orally Once a day 1 tablet Mar, Active 50 mg with a 100mg 2019 tablet (total dose 150mg/day) Sertraline HCl TAKE ONE Active 100 MG TABLET BY MOUTH EVERY DAY 28-0.8 Orally Once a day 1 tablet 24h Active MG Labetalol HCl Orally Twice a 1 tablet 12h Mar, Active 100 mg day 2018 PROCEDURES Procedure Date Ordered Result Body Site VENIPUNCT, ROUTINE* venous blood collection May 21, 2019 Brief emotional/behavioral assessment May 21, 2019 SMOKING + 2ND HAND ASSESSED May 21, 2019 BLOOD PRESSURE, MEASURED May 21, 2019 Urine test May 21, 2019 Urine test May 21, 2019 RESULTS Name Result Date Reference Range - Test, Urine Test, Urine Now Desired Not Desired Sooner Desired Later Desired Unknown - Blood Draw Venipuncture 2019-05-21 REASON FOR VISIT *mood & BP f/u (rescheduled from 05/14/19), PVP: HIV. LDL. Flu. Tetanus - BL Offer immunizations. Fred Jaimes PA-C, PHQ-9 - BL, Patient states that she took a test home and came back positive but she is having some small bleeding issues., Patient already has [facility] in [place]. She will call and schedule her own appointment. - BL Insurance Providers [facility] Member Patient Patient Patient Patient Patient Subscriber Subscriber Subscriber Group Insurance Plan Plan Plan Plan ID Relationship Address Phone Name Date of ID Name Date of No Type Insurance Insurance Insurance Coverage to Subscriber Address Phone Name Dates [employer] [phone] [employer] Breana [id number] BCBS PPO [id number] BCBS PPO Felix 7 EPO Trad [place] [id number] Case [phone] Case self Breana 1980 [id number] Management Nacho Browne Management [facility] [address] [facility] MEDICAL (GENERAL) HISTORY Type Description Date Medical History migraine Medical History GERD Medical History Shingles Medical History Depression Medical History sleep apnea Surgical History appendectomy 04/2014 Surgical History 3 miscarriages Surgical History D&C, twice in 2006 and once in 2014 2006 and 2014
[2019-07-18 07:30] LABS: ALT 12 U/L (7-52); Albumin 3.7 g/dL (3.2-5.2); Albumin/Globulin Ratio 1.2 (1-3); Alkaline Phosphatase 68 U/L (34-104); BUN/Creatinine Ratio 17.5 (8-20); Blood Urea Nitrogen 10 mg/dL (6-24); C Reactive Protein 5.04 mg/L (<8.01); CO2 Carbon Dioxide 23 mmol/L (22-32); Calcium 8.8 mg/dL (8.6-10.3); Chloride 104 mmol/L (101-111); EGFR African American 142.1 (>60); EGFR Non-African American 117.5 (>60); Glucose 92 mg/dL (70-100); Sodium 134 mmol/L (135-145); Total Protein 6.7 g/dL (6.4-8.9)
[2019-07-18 07:41] LABS: Anion Gap 7 mmol/L (2-11)
[2019-07-18 08:24] VITALS: BP 132/71
--- NOTE | 2019-07-18 09:19 | ED ---
Nausea/Vomiting/Diarrhea HPI - HPI Summary HPI Summary: Pt is a 39F [id number] curerntly F presenting to the ED with N/V x 13 weeks. Currently 13 weeks and states she has been having n/v her entire , but worsened the last few days. Not worse or better with time of day or positioning. Continues to eat and drink, but has worsening nausea following. Epigastric tenderness following the vomiting and states she was concerned as several years ago, had a hernia repair. Denies fevers, sweats , chills, abdominal tenderness otherwise, diarrhea or constipation. Patient takes medication labetalol for high blood pressure, otherwise healthy. Nonsmoker, no alcohol use, no drug use. - History of Current Complaint Chief Complaint: EDNauseaVomitDiarrh Stated Complaint: IV FLUIDS PER PT Time Seen by Provider: 07/18/19 06:41 Hx Obtained From: Patient Hx Last Menstrual Period: 12/15/18 ?: No Onset/Duration: Sudden Onset Timing: Constant Severity Initially: Mild Severity Currently: Mild Pain Intensity: 0 Pain Scale Used: 0-10 Numeric Alleviating Factor(s): Nothing Vomiting Frequency: Every 1-2 hours Nausea/Vomiting Duration: > 7 days Vomiting Characteristics: Retching Diarrhea Presence: No - Allergies/Home Medications Allergies/Adverse Reactions: Allergies Allergy/AdvReac Type Severity Reaction Status Date / Time clindamycin Allergy Severe Swelling Verified 07/18/19 05:59 latex Allergy Severe Rash Verified 07/18/19 05:59 Penicillins Allergy Severe Rash Verified 07/18/19 05:59 doxycycline Allergy Mild Swelling Verified 07/18/19 05:59 kiwi Allergy Mild Rash Verified 07/18/19 05:59 Home Medications: Home Medications Beclomethasone 40 MCG MDI(NF) [Qvar 40 MCG MDI(NF)] 2 puff INH BID PRN 08/08/18 [History Confirmed 07/18/19] Multivitamin [One Daily Essential] 1 each PO QAM 08/08/18 [History Confirmed ] Sertraline* [Zoloft*] 50 mg PO DAILY 05/07/19 [History Confirmed 07/18/19] Labetalol TAB* [Trandate TAB*] 100 mg PO BID 05/09/19 [History Confirmed ] Metoclopramide TAB* [Reglan TAB*] 10 mg PO Q6H PRN #20 tab 07/18/19 [Rx] Ondansetron HCl [Zofran 4 MG TAB] 4 mg PO Q4HR PRN 07/18/19 [History Confirmed 07/18/19] Promethazine 25 mg TAB [Phenergan 25 mg TAB] 25 mg PO DAILY 07/18/19 [History Confirmed 07/18/19] PMH/Surg Hx/FS Hx/Imm Hx Previously Healthy: Yes Endocrine/Hematology History: Denies: Hx Diabetes Cardiovascular History: Denies: Hx Congestive Heart Failure, Hx Hypertension, Hx Pacemaker/ICD, Other Cardiovascular Problems/Disorders Respiratory History: Reports: Hx Asthma, Hx Sleep Apnea Denies: Other Respiratory Problems/Disorders GI History: Reports: Hx Gastroesophageal Reflux Disease, Hx Hiatal Hernia - had repair Denies: Other GI Disorders History: Reports: Hx Kidney Infection - Hx OF, MANY YEARS AGO Denies: Hx Dialysis, Hx Renal Disease, Other Problems/Disorders Musculoskeletal History: Reports: Hx Back Problems, Other Musculoskeletal History - has chronic back pain, states due to breasts being large Sensory History: Reports: Hx Contacts or Glasses - GLASSES or contacts- instructed to wear glasses day of surgery Denies: Hx Hearing Aid Opthamlomology History: Reports: Hx Contacts or Glasses - GLASSES or contacts- instructed to wear glasses day of surgery Neurological History: Reports: Hx Headaches, Hx Migraine Denies: Other Neuro Impairments/Disorders Psychiatric History: Reports: Hx Anxiety, Hx Depression Denies: Hx Panic Disorder - Cancer History Hx Chemotherapy: No Hx Radiation Therapy: No - Surgical History Surgery Procedure, Year, and Place: D&C 2006, 2014, 08/10/18. Appendectomy 2014. 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 , Hx Shingles Denies: Hx Clostridium Difficile, Hx Hepatitis, Hx Human Immunodeficiency Virus (HIV), Hx Tuberculosis, Hx Known/Suspected VRE, Hx Known/Suspected VRSA, History Other Infectious Disease, Traveled Outside the [place] in Last 30 Days - Family History Known Family History: Positive: None, Unknown - patient is adopted, Diabetes - Social History Occupation: Employed Full-time Lives: With Family Alcohol Use: None Hx Substance Use: No Substance Use Type: Reports: None Hx Tobacco Use: No Smoking Status (MU): Never Smoked Tobacco Have You Smoked in the Last Year: No Review of Systems Negative: Fever, Chills, Fatigue, Skin Diaphoresis Negative: Palpitations, Chest Pain Negative: Shortness Of Breath, Cough Positive: Abdominal Pain, Vomiting, Nausea. Negative: Diarrhea Genitourinary: Negative Positive: no symptoms reported, see HPI Negative: Arthralgia, Myalgia Negative: Rash, Bruising Neurological/Mental Status: Negative Negative: Headache, Weakness, Paresthesia, Numbness All Other Systems Reviewed And Are Negative: Yes Physical Exam Triage Information Reviewed: Yes Vital Signs On Initial Exam: Initial Vitals Temp Pulse Resp BP Pulse Ox 98.5 F 86 16 170/106 98 07/18/19 05:56 07/18/19 05:56 07/18/19 05:56 07/18/19 05:56 07/18/19 05:56 Vital Signs Reviewed: Yes Appearance: Positive: Well-Appearing, Well-Nourished Skin: Positive: Warm, Skin Color Reflects Adequate Perfusion Head/Face: Positive: Normal Head/Face Inspection Eyes: Positive: EOMI, ELIESER, Conjunctiva Clear Neck: Positive: Supple, No Lymphadenopathy Respiratory/Lung Sounds: Positive: Clear to Auscultation, Breath Sounds Present Cardiovascular: Positive: RRR, Pulses are Symmetrical in both Upper and Lower Extremities Abdomen Description: Positive: Nontender, Soft. Negative: CVA Tenderness (R), CVA Tenderness (L), Distended, Guarding Musculoskeletal: Positive: Normal, Strength/ROM Intact Procedures - Sedation Patient Received Moderate/Deep Sedation with Procedure: No Diagnostics - Vital Signs Vital Signs Temp Pulse Resp BP Pulse Ox 07/18/19 08:37 96.6 F 87 16 132/71 98 07/18/19 08:22 87 132/71 98 07/18/19 08:00 81 97 07/18/19 07:25 16 07/18/19 07:22 77 144/87 97 07/18/19 07:21 86 99 07/18/19 05:56 98.5 F 86 16 170/106 98 - Laboratory Lab Results: Lab Results 07/18/19 07/18/19 07/18/19 Range/Units 07:00 07:00 07:00 WBC 9.2 (3.5-10.8) 10^3/uL RBC 3.87 (3.70-4.87) 10^6 /uL Hgb 12.1 (12.0-16.0) g/dL Hct 34 L (35-47) % MCV 89 (80-97) fL MCH 31 (27-31) pg MCHC 36 (31-36) g/dL RDW 14 (10-15) % Plt Count 324 (150-450) 10^3/uL MPV 8.2 (7.4-10.4) fL Neut % (Auto) 78.3 % Lymph % (Auto) 15.2 % [facility] % (Auto) 5.1 % Eos % (Auto) 1.0 % Baso % (Auto) 0.4 % Absolute Neuts (auto) 7.2 (1.5-7.7) 10^3/ul Absolute Lymphs (auto) 1.4 (1.0-4.8) 10^3/ul Absolute Monos (auto) 0.5 (0-0.8) 10^3/ul Absolute Eos (auto) 0.1 (0-0.6) 10^3/ul Absolute Basos (auto) 0.0 (0-0.2) 10^3/ul Absolute Nucleated RBC 0.0 10^3/ul Nucleated RBC % 0.1 Sodium 134 L (135-145) mmol/L Potassium TNP Chloride 104 (101-111) mmol/L Carbon Dioxide 23 (22-32) mmol/L Anion Gap 7 (2-11) mmol/L BUN 10 (6-24) mg/dL Creatinine 0.57 (0.51-0.95) mg/dL Est GFR ( Amer) 142.1 (>60) Est GFR (Non-Af Amer) 117.5 (>60) BUN/Creatinine Ratio 17.5 (8-20) Glucose 92 (70-100) mg/dL Lactic Acid 0.8 (0.5-2.0) mmol/L Calcium 8.8 (8.6-10.3) mg/dL Magnesium 2.0 (1.9-2.7) mg/dL Total Bilirubin 0.20 (0.2-1.0) mg/dL AST TNP ALT 12 (7-52) U/L Alkaline Phosphatase 68 (34-104) U/L C-Reactive Protein 5.04 (<8.01) mg/L Total Protein 6.7 (6.4-8.9) g/dL Albumin 3.7 (3.2-5.2) g/dL Globulin 3.0 (2-4) g/dL Albumin/Globulin Ratio 1.2 (1-3) Lipase 16 (11.0-82.0) U/L Beta HCG, Quant 03515.00 mIU/mL Result Diagrams: 07/18/19 07:00 07/18/19 07:00 Lab Statement: Any lab studies that have been ordered have been reviewed, and results considered in the medical decision making process. Naus/Vom/Diarrhea Course/Dx - Course Course Of Treatment: On arrival into the ED, the patient appears well, however with dry mucous membranes. She does appear to be dehydrated somewhat. Vital signs are stable. Patient is afebrile. Lungs CTA, RRR. No abdominal tenderness throughout on physical exam. She is given 1 L fluids and 10 mg IV Reglan with good relief. Patient asymptomatic at this time. Labs are obtained which shows sodium of 134. As patient is feeling improved, she will be discharged at this time. She is given a prescription for Reglan at home. - Differential Dx/Diagnosis Provider Diagnosis: Nausea and vomiting in Condition At Discharge: Stable Discharge ED - Sign-Out/Discharge Documenting (check all that apply): Patient Departure - Discharge Plan Condition: Stable Disposition: HOME Prescriptions: Metoclopramide TAB* [Reglan TAB*] 10 mg PO Q6H PRN #20 tab PRN Reason: Nausea Patient Education Materials: Acute Nausea and Vomiting (ED) Referrals: Vito Richards MD [Primary Care Provider] - Additional Instructions: Please follow up with PCP as needed Reglan up to four times daily as needed for nausea - Billing Disposition and Condition Condition: STABLE Disposition: Home - Attestation Statements Provider Attestation: I was available for consult. This patient was seen by the [facility]. The patient was not presented to, seen by, or examined by me. Ej Davis MD
== END 2019-07-18 08:37 | disposition home or self-care (01) ==
LOC: ED 05:54
DX: O21.9 Vomiting of pregnancy, unspecified (principal); Z3A.13 13 weeks gestation of pregnancy; R10.9 Unspecified abdominal pain; K21.9 Gastro-esophageal reflux disease without esophagitis; F41.9 Anxiety disorder, unspecified; F32.9 Major depressive disorder, single episode, unspecified; Z79.899 Other long term (current) drug therapy
CPT/HCPCS: 36415; 80053; 83605; 83690; 83735; 84702; 85025; 86140; 96374; 99282; J2765

== ENCOUNTER 2020-01-03 08:18 | Inpatient (IN) ==
[2020-01-03] MEDS ORDERED: Lactated Ringers 1000 ml BAG 1,000 ML IV ONE ×3 (09:40→16:09)
[2020-01-03] MEDS ORDERED: Oxytocin in LR 20 UNITS/1,000 ML BAG IVPB SCH ×2 (10:00→19:00)
[2020-01-03] MEDS ORDERED: ceFAZolin VIAL 1 GM in NS 0.9% 50 ML 50 ML IVPB SCH (10:00)
[2020-01-03] MEDS ORDERED: Lactated Ringers 1000 ml BAG 1,000 ML IV SCH ×4 (10:00→19:00)
[2020-01-03 10:19] LABS: ABS Eosinophils 0.1 10^3/ul (0-0.6); ABS Lymphocytes 1.3 10^3/ul (1.0-4.8); ABS Monocytes 0.5 10^3/ul (0-0.8); ABS Neutrophils 6.9 10^3/ul (1.5-7.7); Hematocrit 32 % (35-47); Hemoglobin 11.3 g/dL (12.0-16.0); Lymphocyte % 14.6 %; Mean Corpuscular HGB Conc 35 g/dL (31-36); Mean Corpuscular Hemoglobin 31 pg (27-31); Mean Corpuscular Volume 88 fL (80-97); Mean Platelet Volume 8.5 fL (7.4-10.4); Platelet Count 270 10^3/uL (150-450); Red Blood Count 3.64 10^6 /uL (3.70-4.87); Red Cell Distribution Width 14 % (10-15); White Blood Count 8.9 10^3/uL (3.5-10.8)
[2020-01-03 10:37] LABS: Urine Benzodiazepine Screen None Detected (None Detect); Urine Cannabinoids Screen None Detected (None Detect); Urine Opiates Screen None Detected (None Detect)
[2020-01-03] MEDS ORDERED: OBEPIDURAL 250 ML EPIDURAL ONE (15:36)
[2020-01-03] MEDS ORDERED: OBEPIDURAL 250 ML EPIDURAL SCH ×2 (16:00→17:00)
[2020-01-03] MEDS ORDERED: Phenylephrine 40 mcg/mL 10mL (400mcg) SYRINGE IV PUSH PRN ×4 (16:00→16:09)
[2020-01-03] MEDS ORDERED: Sodium Citrate/Citric Acid LIQ 15 ML UDC PO PRN ×2 (16:00→16:09)
[2020-01-03] MEDS ORDERED: Witch Hazel PAD JAR TOPICAL PRN (18:56)
[2020-01-03] MEDS ORDERED: Dibucaine 1% OINT 28.35 GM TUBE PR PRN (18:56)
[2020-01-03] MEDS ORDERED: Glycerin ADULT 2.4 gm SUPP PR PRN (18:56)
[2020-01-03] MEDS ORDERED: Lidocaine 1% MPF 5 ML VIAL ONE (22:03)
[2020-01-04 08:24] LABS: ABS Basophils 0.1 10^3/ul (0-0.2); ABS Eosinophils 0.2 10^3/ul (0-0.6); ABS Lymphocytes 1.8 10^3/ul (1.0-4.8); ABS Monocytes 0.6 10^3/ul (0-0.8); ABS Neutrophils 8.4 10^3/ul (1.5-7.7); Eosinophil % 1.8 %; Hematocrit 30 % (35-47); Hemoglobin 9.8 g/dL (12.0-16.0); Lymphocyte % 16.2 %; Mean Corpuscular HGB Conc 33 g/dL (31-36); Mean Corpuscular Hemoglobin 29 pg (27-31); Mean Corpuscular Volume 89 fL (80-97); Mean Platelet Volume 8.3 fL (7.4-10.4); Platelet Count 260 10^3/uL (150-450); Red Blood Count 3.33 10^6 /uL (3.70-4.87); Red Cell Distribution Width 14 % (10-15)
[2020-01-05 12:26] VITALS: BP 135/67
== END 2020-01-05 17:14 | disposition home or self-care (01) | DRG 560 ==
LOC: MCHOBOUT 08:18 → MCHOB 09:35
PROVIDERS: ADMIT Obstetrics & Gynecology; ATTEND Obstetrics & Gynecology